=== PATIENT | female | born 1930 | race Caucasian/White ===

== ENCOUNTER 2016-10-12 09:34 | Inpatient (IN) | payer MEDICARE, BC, OTHER, MEDICAID ==
[~2016-10-12] VITALS: Ht 154.9 cm; Wt 44.0 kg
[2016-10-12] VITALS (15 sets, daily range): BP systolic 97–150; BP diastolic 49–112
[~2016-10-12 09:34] MED LIST: /PANT40TA OR; ACET-654 PO; ALPR0.25 OR; ARIC5TAB OR; BISA10SU4 PR; CALC12502 OR; COUM2.5T11 PO; DONETAB5 PO; DRIS50002 PO; ENOXAPARIN 40 MG/0.4 ML SYRINGE (J1650) SC SCH; FLEEENE4 PR; FLUD1TA PO; KAOP262S PO; KLOR1TAB69 PO; LEVA250T PO; LORA10TA2 PO; MILKSUS OR; MILKSUS PO; NORCOTAB PO; OYSCTAB PO; PAIN325T OR; PROT0.1O TOP; REFR0.5D8 OU; SPIR1CAP INH; TOPI0.252 EXT; TRAM50TA2 OR; VIT D 2000 PO; VITA100T5 OR; VITAMIN D50000 UNT OR; VITMTA PO; XANA0.25 OR; ZANT1TAB PO; [UNRECOGNIZED DRUG - CODE] OD
--- NOTE | 2016-10-12 10:14 | REP ---
Clinical: Shortness of breath. Comparison: 10/18/2015. Findings: Superimposed moderate to large right pleural effusion with right lower lobe atelectasis appreciated. Diffuse chronic interstitial changes noted with fibrosis and scarring. Mediastinum and cardiac silhouette stable. Skeletal structures demonstrate osteopenia and degenerative changes. Impression: [id number] right pleural effusion with right lower lobe atelectasis. Signed by Fuad Wing MD 10/12/2016 10:05 A
[2016-10-12 10:32] LABS: BASO % 0.2 % (0.0-1.0); EOS # 0.3 K/mm3 (0.0-0.50); EOS % 3.5 % (0.0-3.0); LARGE UNSTAINED CELL # 0.1 K/mm3 (0.0-0.4); LARGE UNSTAINED CELL % 1.1 % (0.0-4.0); LYMPH # 0.5 K/mm3 (1.5-4.5); LYMPH % 4.9 % (24.0-44.0); MEAN CORPUSCULAR HEMOGLOBIN 30.6 pg (27.0-33.0); MEAN CORPUSCULAR HGB CONC 31.3 g/dl (32.0-36.5); MEAN CORPUSCULAR VOLUME 97.8 fl (80.0-96.0); MONO # 0.4 K/mm3 (0.0-0.8); MONO % 4.3 % (0.0-5.0); NEUTROPHILS # 8.3 K/mm3 (1.8-7.7); PLATELET COUNT, AUTOMATED 306 k/mm3 (150-450); RED CELL DISTRIBUTION WIDTH 12.7 % (11.5-14.5); WHITE BLOOD COUNT 9.7 K/mm3 (4.0-10.0)
[2016-10-12 10:50] LABS: ANION GAP 6 MEQ/L (8-16); BLOOD UREA NITROGEN 31 MG/DL (7-18); CALCIUM LEVEL 9.7 MG/DL (8.8-10.2); CARBON DIOXIDE LEVEL 30 MEQ/L (21-32); CHLORIDE LEVEL 108 MEQ/L (98-107); CREATININE FOR GFR 1.12 MG/DL (0.55-1.02); GLOMERULAR FILTRATION RATE 48.9 (>32); GLUCOSE, FASTING 184 MG/DL (83-110); POTASSIUM SERUM 4.1 MEQ/L (3.5-5.1); SODIUM LEVEL 144 MEQ/L (136-145)
[2016-10-12] MEDS ORDERED: ISOVUE-370 76% 100ML VIAL (Q9967) As Ordered ONE (11:05)
--- NOTE | 2016-10-12 11:37 | REP ---
Clinical: Chest pain and shortness of breath with pleural effusion. Technique: Axial contrast enhanced images from the thoracic inlet to the upper abdomen using 100 ml Isovue 370 intravenous contrast material with coronal and sagittal re-formations. Findings: Satisfactory enhancement of the pulmonary vasculature is achieved and no filling defects are identified to suggest pulmonary embolus. Atherosclerotic changes to the thoracic aorta and coronary arteries noted without cardiomegaly and no evidence for thoracic aortic aneurysm or dissection. There is a large right pleural effusion with scattered passive atelectasis as well as ill-defined area of heterogeneous consolidation in the right lower lobe and underlying mass/neoplasm cannot be excluded. Underlying chronic interstitial changes and fibrosis/scarring noted throughout the aerated lung ventura. Skeletal structures demonstrate age-related degenerative changes. Limited evaluation of the upper abdomen suggests heterogeneous right adrenal lesion measuring approximately 13 mm. Impression: Large right pleural effusion with associated passive atelectasis. Heterogeneous area of consolidation in the atelectatic right lower lobe requires followup to exclude mass/neoplasm. Heterogeneous enhancing lesion in the right adrenal gland cannot be excluded. Signed by Fuad Wing MD 10/12/2016 11:29 A
[2016-10-12] MEDS ORDERED: MIRT30TA3 PO (11:48)
[2016-10-12] MEDS ORDERED: NAME10TA PO (11:48)
[2016-10-12] MEDS ORDERED: TYLE325T5 PO (11:48)
[2016-10-12] MEDS ORDERED: LORA-376 PO ×2 (11:48)
[2016-10-12] MEDS ORDERED: KLOR1CAP2 PO (11:48)
[2016-10-12] MEDS ORDERED: FEVE650S3 PR (11:48)
[2016-10-12] MEDS ORDERED: ALBU83IN INH (11:48)
[2016-10-12] MEDS ORDERED: ARTI99.0 OU (11:48)
[2016-10-12] MEDS ORDERED: SENO8.6T2 PO (11:48)
[2016-10-12] MEDS ORDERED: ZIOPTAN OD (11:48)
[2016-10-12] MEDS ORDERED: TRAN1.5D2 TOP (11:48)
[2016-10-12] MEDS ORDERED: ONDANSETRON 4MG/2ML VIAL (J2405) IV PRN (12:15)
[2016-10-12] MEDS ORDERED: ACETAMINOPHEN TAB 650MG DOSE (2X325MG) PO PRN (12:15)
--- NOTE | 2016-10-12 13:36 | EDDOCDS ---
Nurse's Notes [facility] Name: Krys Lopez Age: 86 yrs Sex: Female : 1930 Arrival Date: 10/12/2016 Time: 09:34 Bed 4 Private MD: Tania Griffin E Diagnosis: Pleural effusion in conditions classified elsewhere Presentation: 10/12 09:43 Presenting complaint: Sent here from [facility] increased SOB. Adult Sepsis Screening: The mlb1 patient does not have new or worsening altered mentation. Patient's respiratory rate is less than 22. Systolic blood pressure is greater than 100. Patient has a qSOFA score of 0- Negative Sepsis Screen. Suicide/Homicide risk assessment- the patient denies having any suicidal and/or homicidal ideations and does not present with any other emotional, behavioral or mental health complaints. Status: Patient is not a resident services director or dependent. Transition of care: patient was received from [facility]. 09:43 Acuity: BLAYNE Level 3 mlb1 09:43 Method Of Arrival: Walkin/Carried/Asstd mlb1 Triage Assessment: 09:44 General: Appears in no apparent distress, comfortable, Behavior is appropriate for age, mlb1 cooperative. Pain: Denies pain. The patient is triaged at the bedside. See Assessment in Nurses Notes section of ED record. Neurological: Level of Consciousness is awake, alert, Oriented to person, place, time. Respiratory: Onset: The symptoms/episode began/occurred gradually, Airway is patent Respiratory effort is even, unlabored. Historical: - Allergies: PENICILLINS; - Home Meds: 1. albuterol sulfate 2.5 mg/0.5 mL Nebulizer nebu 4 times per day 2. Oyster Shell Calcium 500 500 mg Oral tab daily 3. potassium chloride 10 mEq Oral cpER 2 caps once daily 4. Zioptan (PF) 0.0015 % ophthalmic dpet 1 drop once daily 5. Tylenol 325 mg Oral tab 2 tabs every 6 hours 6. Zantac 150 mg Oral tab 1 tab once daily 7. Senokot 8.6 mg Oral tab 1 tabs twice a day 8. multivitamin Oral tab 1 tablet daily 9. Claritin 10 mg oral tab 1 tab once daily 10. fludrocortisone 0.1 mg oral tab 1 tab once daily 11. Vitamin D2 50,000 unit oral cap every two weeks 12. mirtazapine 30 mg Oral tab 1 tab once daily 13. Namenda 10 mg oral tab 1 tab daily 14. Milk of Magnesia Oral 10 mL as needed 15. Refresh Tears 0.5 % ophthalmic drop 16. Ativan 0.25mg Oral tab once daily 17. Protopic 0.1 % topical oint as needed 18. Transderm-Scop 1.5 mg (1 mg over 3 days) TD pt3d 1 patch - PMHx: CVA; Hypertension; Seizure Disorder; COPD; GERD; - PSHx: Tonsillectomy; - Social history: Smoking status: Patient states was never smoker of tobacco. No barriers to communication noted, The patient speaks fluent Chinese, Speaks appropriately for age. - Family history: No immediate family members are acutely ill. - : The pt / caregiver states he / she is not on anticoagulants. Home medication list is obtained from the facility NOV. - Exposure Risk Screening:: None identified. Screenin:57 Advance Directives: There is an active DNR order and the pt has a copy here at this mlb1 time. 11:28 Screening information is obtained from the patient, prior medical records. Fall risk: hs1 At risk due to age, apparent cognitive impairment, gait disturbance, The following interventions are performed due to a positive Fall Risk Screen: Fall Risk is added to Special Handling on the patient Summary Screen. A Fall Risk Bracelet was applied to the patient. Side Rails are placed in the up position. A Call [facility] is given with instruction to call for help when getting out of bed. Fall Alert bracelet is placed on the patient. Assistance ADL's: Requires assistance with meal preparation, this assistance is provided by residence staff, bathing, assistance is provided by residence staff, toileting, assistance is provided by residence staff, ambulation, assistance is provided by residence staff, housework, assistance is provided by residence staff, medication administration, assistance is provided by residence staff. Abuse/DV Screen: The patient / caregiver reports he/she is: not in a situation that causes fear, pain or injury. Nutritional screening: No deficits noted. home support is adequate. Assessment: 10:05 General: Appears in no apparent distress, slender, Behavior is cooperative. Pain: hs1 Denies pain. Neurological: Level of Consciousness is confused, obeys commands. Cardiovascular: Rhythm is regular. Cardiovascular: Capillary refill is sluggish fingers are cold. . Edema is absent. Cardiovascular: Chest pain is denied. Respiratory: Airway is patent Respiratory effort is even, unlabored, Pleural rub noted bilaterally. Derm: Skin is pink, warm & dry. normal. 10:53 General: Appears to have moments of confusion, yelling for help usually after waking hs1 up. Patient comforted and resting at present. Given warm blankets. . 11:26 General: Appears in no apparent distress, Pt returned from CT scan with no complaints. hs1 Patient asked for cold water and MD aware or request. Patient does not appear SOB. . 12:48 Adult Sepsis Screening: The patient does not have new or worsening altered mentation. hs1 Patient's respiratory rate is less than 22. Systolic blood pressure is greater than 100. Patient has a qSOFA score of 0- Negative Sepsis Screen. General: Appears in no apparent distress, Behavior is appropriate for age, cooperative. Pain: Denies pain. Cardiovascular: Capillary refill < 3 seconds Edema is absent. Rhythm is regular. Vital Signs: 09:36 BP 92 / 54; Pulse 72; Resp 18; Temp 96.6; Pulse Ox 92% on 2 lpm NC; Weight 44 kg; elp Height 61 in. (154.94 cm); 09:44 BP 116 / 61 (auto/); hs1 09:45 Pulse 74 MON; Pulse Ox 91% ; hs1 11:28 BP 115 / 55 (auto/); hs1 11:28 Pulse 70 MON; Pulse Ox 91% ; hs1 11:43 BP 110 / 57 (auto/); hs1 11:43 Pulse 74 MON; Pulse Ox 94% ; hs1 12:13 BP 131 / 60 (auto/); hs1 12:13 Pulse 74 MON; Pulse Ox 91% ; hs1 12:28 BP 123 / 62 (auto/); hs1 12:28 Pulse 70 MON; Pulse Ox 92% ; hs1 12:43 BP 128 / 60 (auto/); hs1 12:43 Pulse 68 MON; Pulse Ox 94% ; hs1 12:58 BP 130 / 68 (auto/); hs1 12:58 Pulse 64 MON; Pulse Ox 94% ; hs1 13:31 BP 132 / 58; Pulse 68; Resp 18; Temp 98.4; Pulse Ox 94% 2 lpm ; hs1 09:36 Body Mass Index 18.33 (44.00 kg, 154.94 cm) elp Vitals: 09:36 Log In Time: October 12, 2016 at 09:34. RN notified that patient meets Red Flag elp criteria. ED Course: 09:35 Patient visited by Priscilla Leone PCA. elp 09:35 Patient moved to Waiting elp 09:36 Tania Griffin is Private Physician. elp 09:36 Patient visited by Priscilla Leone PCA. elp 09:37 More Shay, RN is Primary Nurse. elp 09:37 Patient moved to Pre RCE elp 09:37 Patient moved to 4 elp 09:41 Christa Whalen MD is Attending Physician. sd1 09:41 Patient visited by Christa Whalen MD. sd1 09:42 Patient visited by Barron Davis RN. mlb1 09:44 Triage Initiated mlb1 10:00 Pt greeted and oriented to ED. Patient advised of names of staff involved in care, jrd location of call solis, wait times and NPO status. Patient has correct armband on for positive identification. Placed in gown. Bed in low position. Call light in reach. Side rails up X2. monitor technician on. Pulse ox on. NIBP on. 10:00 EKG done. (by ED staff). Reviewed by Christa Whalen MD. jrd 10:01 Patient visited by Geovanny Sharma PCA. jrd 10:05 Inserted saline lock: 20 gauge in left antecubital area and blood collected. The hs1 patient tolerated the procedure well. 10:23 -Blood Culture Sent. hs1 10:23 B-Type Natiuretic Peptide Sent. hs1 10:23 Basic Metabolic Profile Sent. hs1 10:23 CBC with Diff Sent. hs1 10:23 Cardiac Injury Profile Sent. hs1 10:23 Troponin Sent. hs1 10:23 Lactic Acid (Ford tube on ice) Sent. hs1 10:27 [facility] Payment Agreement was scanned into [employer] and attached to record. jp5 10:48 Chest, 1 View Returned. EDMS 10:51 Patient visited by More Shay RN. hs1 11:26 Patient visited by More Shay RN. hs1 11:28 The patient / caregiver is instructed regarding the plan of care and ED course. hs1 11:30 PT/INR Sent. hs1 11:48 Lam Estrada is Hospitalizing Provider. sd1 12:12 CT Chest With Contrast Returned. EDMS 12:44 T-Sheet-- Draft Copy was scanned into [employer] and attached to record. seh 13:30 No procedures done that require assistance. hs1 Order Results: Lab Order: B-Type Natiuretic Peptide; SPEC'M 10/12/16 10:04 Test: BRAIN NATRIURETIC PEPTIDE; Value: 261; Range: <100; Abnormal: Above high normal; Units: PG/ML; Status: F Lab Order: Basic Metabolic Profile; SPEC'M 10/12/16 10:04 Test: GLUCOSE, FASTING; Value: 184; Range: 83-110; Abnormal: Above high normal; Units: MG/DL; Status: F Test: BLOOD UREA NITROGEN; Value: 31; Range: 7-18; Abnormal: Above high normal; Units: MG/DL; Status: F Test: CREATININE FOR GFR; Value: 1.12; Range: 0.55-1.02; Abnormal: Above high normal; Units: MG/DL; Status: F Test: GLOMERULAR FILTRATION RATE; Value: 48.9; Range: >32; Status: F Test: SODIUM LEVEL; Value: 144; Range: 136-145; Units: MEQ/L; Status: F Test: POTASSIUM SERUM; Value: 4.1; Range: 3.5-5.1; Units: MEQ/L; Status: F Test: CHLORIDE LEVEL; Value: 108; Range: 98-107; Abnormal: Above high normal; Units: MEQ/L; Status: F Test: CARBON DIOXIDE LEVEL; Value: 30; Range: 21-32; Units: MEQ/L; Status: F Test: ANION GAP; Value: 6; Range: 8-16; Abnormal: Below low normal; Units: MEQ/L; Status: F Test: CALCIUM LEVEL; Value: 9.7; Range: 8.8-10.2; Units: MG/DL; Status: F Test Note: ; Units are mL/min/1.73 m2 Chronic Kidney Disease Staging per NKF: Stage I & II GFR >=60 Normal to Mildly Decreased Stage III GFR 30-59 Moderately Decreased Stage IV GFR 15-29 Severely Decreased Stage V GFR <15 Very Little GFR Left ESRD GFR <15 on WAFER FABRICATOR Lab Order: CBC with Diff; SPEC'M 10/12/16 10:04 Test: WHITE BLOOD COUNT; Value: 9.7; Range: 4.0-10.0; Units: K/mm3; Status: F Test: RED BLOOD COUNT; Value: 4.08; Range: 4.00-5.40; Units: M/mm3; Status: F Test: HEMOGLOBIN; Value: 12.5; Range: 12.0-16.0; Units: g/dl; Status: F Test: HEMATOCRIT; Value: 39.9; Range: 36.0-47.0; Units: %; Status: F Test: MEAN CORPUSCULAR VOLUME; Value: 97.8; Range: 80.0-96.0; Abnormal: Above high normal; Units: fl; Status: F Test: MEAN CORPUSCULAR HEMOGLOBIN; Value: 30.6; Range: 27.0-33.0; Units: pg; Status: F Test: MEAN CORPUSCULAR HGB CONC; Value: 31.3; Range: 32.0-36.5; Abnormal: Below low normal; Units: g/dl; Status: F Test: RED CELL DISTRIBUTION WIDTH; Value: 12.7; Range: 11.5-14.5; Units: %; Status: F Test: PLATELET COUNT, AUTOMATED; Value: 306; Range: 150-450; Units: k/mm3; Status: F Test: NEUTROPHILS %; Value: 86.0; Range: 36.0-66.0; Abnormal: Above high normal; Units: %; Status: F Test: LYMPH %; Value: 4.9; Range: 24.0-44.0; Abnormal: Below low normal; Units: %; Status: F Test: MONO %; Value: 4.3; Range: 0.0-5.0; Units: %; Status: F Test: EOS %; Value: 3.5; Range: 0.0-3.0; Abnormal: Above high normal; Units: %; Status: F Test: BASO %; Value: 0.2; Range: 0.0-1.0; Units: %; Status: F Test: LARGE UNSTAINED CELL %; Value: 1.1; Range: 0.0-4.0; Units: %; Status: F Test: NEUTROPHILS #; Value: 8.3; Range: 1.8-7.7; Abnormal: Above high normal; Units: K/mm3; Status: F Test: LYMPH #; Value: 0.5; Range: 1.5-4.5; Abnormal: Below low normal; Units: K/mm3; Status: F Test: MONO #; Value: 0.4; Range: 0.0-0.8; Units: K/mm3; Status: F Test: EOS #; Value: 0.3; Range: 0.0-0.50; Units: K/mm3; Status: F Test: BASO #; Value: 0.0; Range: 0.0-0.2; Units: K/mm3; Status: F Test: LARGE UNSTAINED CELL #; Value: 0.1; Range: 0.0-0.4; Units: K/mm3; Status: F Lab Order: Cardiac Injury Profile; SPEC'M 10/12/16 10:04 Test: CPK CREATINE PHOSPHOKINASE; Value: 50; Range: 26-192; Units: U/L; Status: F Test: CK-MB VALUE MASS; Value: 1.0; Range: 0.0-3.6; Units: NG/ML; Status: F Test: MB/CK RELATIVE INDEX; Value: 2.00; Range: < OR =4; Status: F Test Note: ; DIAGNOSIS CRITERIA MMB ng/ml Relative Index (RI) NON-AMI < or = 5 N/A FORD ZONE > 5 < or = 4 AMI > 5 > 4 Lab Order: Troponin; SPEC'M 10/12/16 10:04 Test: TROPONIN I; Value: < 0.02; Range: < 0.10; Units: NG/ML; Status: F Test Note: ; Troponin I Reference Interval for [employer] LOCI: 99th Percentile= 0.00-0.045 ng/ml Risk Stratification: <= 0.10 ng/ml Decreased Risk for Adverse Clinical Events. 0.10-1.50 ng/ml Increased Risk for Adverse Clinical Events. Evaluation of additional criterion and/or repeat testing in 2-6 hours is suggested to rule out myocardial damage. >= 1.50 ng/ml Indicative of Myocardial Injury. Lab Order: Lactic Acid (Ford tube on ice); SPEC'M 10/12/16 10:05 Test: LACTIC ACID LEVEL, LACTATE; Value: 2.1; Range: 0.4-2.0; Abnormal: Above high normal; Units: MMOL/L; Status: F Lab Order: PT/INR; SPEC'M 10/12/16 10:06 Test: PROTHROMBIN TIME; Value: 13.3; Range: 12.3-14.5; Units: SECONDS; Status: F Test: INR; Value: 1.00; Status: F Test Note: ; THERAPUTIC HUMAN INR VALUES INDICATIONS NORMAL RANGES PROPHYLAXIS/TREATMENT OF: VENOUS THROMBOSIS 2.0-3.0 PULMONARY EMBOLISM 2.0-3.0 PREVENTION OF SYSTEMIC EMBOLISM FROM: TISSUE HEART VALVES 2.0-3.0 ACUTE MYOCARDIAL INFARCTION 2.0-3.0 VALVULAR HEART DISEASE 2.0-3.0 ATRIAL FIBRILLATION 2.0-3.0 MECHANICAL VALVES(HIGH RISK) 2.5-3.5 RECURRENT MYOCARDIAL INFARCTION 2.5-3.5 Radiology Order: Chest, 1 View Test: Chest, 1 View REASON FOR EXAMINATION: Shortness of Breath; Clinical: Shortness of breath.; ; Comparison: 10/18/2015.; ; Findings:; Superimposed moderate to large right pleural effusion with right lower lobe; atelectasis appreciated.; ; Diffuse chronic interstitial changes noted with fibrosis and scarring.; Mediastinum and cardiac silhouette stable. Skeletal structures demonstrate; osteopenia and degenerative changes.; ; Impression:; [id number] right pleural effusion with right lower lobe atelectasis.; ; ; Signed by; Fuad Wing MD 10/12/2016 10:05 A; Radiology Order: CT Chest With Contrast Test: CT Chest With Contrast REASON FOR EXAMINATION: pleural effusion; Clinical: Chest pain and shortness of breath with pleural effusion.; ; Technique: Axial contrast enhanced images from the thoracic inlet to the upper; abdomen using 100 ml Isovue 370 intravenous contrast material with coronal and; sagittal re-formations.; ; Findings:; Satisfactory enhancement of the pulmonary vasculature is achieved and no filling; defects are identified to suggest pulmonary embolus. Atherosclerotic changes to; the thoracic aorta and coronary arteries noted without cardiomegaly and no; evidence for thoracic aortic aneurysm or dissection.; ; There is a large right pleural effusion with scattered passive atelectasis as; well as ill-defined area of heterogeneous consolidation in the right lower lobe; and underlying mass/neoplasm cannot be excluded. Underlying chronic interstitial; changes and fibrosis/scarring noted throughout the aerated lung ventura. Skeletal; structures demonstrate age-related degenerative changes. Limited evaluation of; the upper abdomen suggests heterogeneous right adrenal lesion measuring; approximately 13 mm.; ; Impression:; Large right pleural effusion with associated passive atelectasis.; Heterogeneous area of consolidation in the atelectatic right lower lobe requires; followup to exclude mass/neoplasm.; Heterogeneous enhancing lesion in the right adrenal gland cannot be excluded.; ; ; Signed by; Fuad Wing MD 10/12/2016 11:29 A; Outcome: 11:49 Decision to Hospitalize by Provider. sd1 13:30 Discharge Assessment: Patient awake, alert and oriented x 3. No cognitive and/or hs1 functional deficits noted. Patient verbalized understanding of disposition instructions. patient administered narcotics - no. The following High Risk Discharge criteria are identified: None. Admitted to PCU accompanied by nurse, accompanied by tech, via wheelchair, with oxygen, on monitor. Condition: stable. CT Study completed. Admission hand-off: Report called to [facility] PCU. Property :Personal belongings accompany Pt. 13:35 Patient left the ED. hs1 Signatures: Dispatcher [employer] Christa Capone MD MD sd1 Barron Davis RN RN mlb1 More Shay RN RN hs1 Priscilla Leone, GEOSPATIAL ENGINEER GEOSPATIAL ENGINEER Geovanny Hanley, GEOSPATIAL ENGINEER GEOSPATIAL ENGINEER Flavio Shepherd 5 Christa Monsivais se [facility]
--- NOTE | 2016-10-12 13:36 | EDDOCDS ---
Physician Documentation [facility] Name: Krys Lopez Age: 86 yrs Sex: Female : 1930 Arrival Date: 10/12/2016 Time: 09:34 Bed 4 Private MD: Tania Griffin E Disposition: 10/12/16 11:49 Hospitalization ordered by Lam Estrada for Inpatient Admission. Preliminary diagnosis is Pleural effusion in conditions classified elsewhere. - Bed requested for PCU. - Status is Inpatient Admission. hs1 - Condition is Stable. - Problem is new. - Symptoms are unchanged. Historical: - Allergies: PENICILLINS; - Home Meds: 1. albuterol sulfate 2.5 mg/0.5 mL Nebulizer nebu 4 times per day 2. Oyster Shell Calcium 500 500 mg Oral tab daily 3. potassium chloride 10 mEq Oral cpER 2 caps once daily 4. Zioptan (PF) 0.0015 % ophthalmic dpet 1 drop once daily 5. Tylenol 325 mg Oral tab 2 tabs every 6 hours 6. Zantac 150 mg Oral tab 1 tab once daily 7. Senokot 8.6 mg Oral tab 1 tabs twice a day 8. multivitamin Oral tab 1 tablet daily 9. Claritin 10 mg oral tab 1 tab once daily 10. fludrocortisone 0.1 mg oral tab 1 tab once daily 11. Vitamin D2 50,000 unit oral cap every two weeks 12. mirtazapine 30 mg Oral tab 1 tab once daily 13. Namenda 10 mg oral tab 1 tab daily 14. Milk of Magnesia Oral 10 mL as needed 15. Refresh Tears 0.5 % ophthalmic drop 16. Ativan 0.25mg Oral tab once daily 17. Protopic 0.1 % topical oint as needed 18. Transderm-Scop 1.5 mg (1 mg over 3 days) TD pt3d 1 patch - PMHx: CVA; Hypertension; Seizure Disorder; COPD; GERD; - PSHx: Tonsillectomy; - Social history: Smoking status: Patient states was never smoker of tobacco. No barriers to communication noted, The patient speaks fluent Azeri, Speaks appropriately for age. - Family history: No immediate family members are acutely ill. - : The pt / caregiver states he / she is not on anticoagulants. Home medication list is obtained from the facility NOV. - Exposure Risk Screening:: None identified. Vital Signs: 10/12 09:36 BP 92 / 54; Pulse 72; Resp 18; Temp 96.6; Pulse Ox 92% on 2 lpm NC; Weight 44 kg / 97 elp lbs; Height 61 in. (154.94 cm); 09:44 BP 116 / 61 (auto/); hs1 09:45 Pulse 74 MON; Pulse Ox 91% ; hs1 11:28 BP 115 / 55 (auto/); hs1 11:28 Pulse 70 MON; Pulse Ox 91% ; hs1 11:43 BP 110 / 57 (auto/); hs1 11:43 Pulse 74 MON; Pulse Ox 94% ; hs1 12:13 BP 131 / 60 (auto/); hs1 12:13 Pulse 74 MON; Pulse Ox 91% ; hs1 12:28 BP 123 / 62 (auto/); hs1 12:28 Pulse 70 MON; Pulse Ox 92% ; hs1 12:43 BP 128 / 60 (auto/); hs1 12:43 Pulse 68 MON; Pulse Ox 94% ; hs1 12:58 BP 130 / 68 (auto/); hs1 12:58 Pulse 64 MON; Pulse Ox 94% ; hs1 13:31 BP 132 / 58; Pulse 68; Resp 18; Temp 98.4; Pulse Ox 94% 2 lpm ; hs1 09:36 Body Mass Index 18.33 (44.00 kg, 154.94 cm) elp MDM: 09:39 -Blood Culture (Adults Only), peripheral from different site, or from device/port/PICC sd1 etc. if present ordered. 09:39 Wafer Mounter/Pulse Ox/q 15 min VS ordered. sd1 09:39 IV Saline Lock ordered. sd1 09:40 Oxygen at 4L/Min NC or Home dosage ordered. sd1 09:40 Rhythm Strip to chart ordered. sd1 09:41 B-Type Natiuretic Peptide Ordered. EDMS 09:41 Basic Metabolic Profile Ordered. EDMS 09:41 CBC with Diff Ordered. EDMS 09:41 Cardiac Injury Profile Ordered. EDMS 09:41 Troponin Ordered. EDMS 09:41 -Blood Culture Ordered. EDMS 09:41 Chest, 1 View Ordered. EDMS 09:41 ECG WITH READING ER PHYS+CARDIAG ordered. EDMS 09:41 Lactic Acid (Ford tube on ice) Ordered. EDMS 09:44 Orthostatic VS ordered. sd1 09:58 -Blood Culture (Adults Only), peripheral from different site, or from device/port/PICC deg etc. if present complete. 09:59 BLOOD CULTURES Ordered. EDMS 10:27 [facility] Payment Agreement was scanned into [employer] and attached to record. jp5 10:27 Financial registration complete. jp5 10:31 BED REQUEST+ADM ordered. EDMS 10:53 Basic Metabolic Profile Reviewed. sd1 10:53 CBC with Diff Reviewed. sd1 10:53 Cardiac Injury Profile Reviewed. sd1 10:53 Troponin Reviewed. sd1 10:53 Chest, 1 View Reviewed. sd1 10:53 PT/INR Ordered. EDMS 10:56 CT Chest With Contrast Ordered. EDMS 11:25 B-Type Natiuretic Peptide Reviewed. sd1 11:25 Basic Metabolic Profile Reviewed. sd1 11:25 Lactic Acid (Ford tube on ice) Reviewed. sd1 11:25 Cardiac Injury Profile Reviewed. sd1 11:25 Troponin Reviewed. sd1 12:19 Admission / Observation Status ordered. EDMS 12:19 NPO DIET ordered. EDMS 12:21 PHYSICAL THERAPY EVAL & TREAT ordered. EDMS 12:44 T-Sheet-- Draft Copy was scanned into [employer] and attached to record. [facility] Signatures: Dispatcher [employer] EDRI Christa Whalen MD MD sd1 Arlene Quezada, Poultry Pathologist Unit deg Barron Davis RN RN mlb1 More Shay RN RN hs1 Cindy Robles RN Flavio Sanchez 5 Christa Monsivais [facility] The chart was reviewed and I authenticate all verbal orders and agree with the evaluation and treatment provided.Corrections: (The following items were deleted from the chart) 12:57 12:19 PROTHROMBIN TIME PROFILE\E\INR ordered. EDMS EDMS 12:57 12:20 PARTIAL THROMBOPLASTIN TIME ordered. EDRI EDMS Attachments: 10:27 [facility] Payment Agreement jp5 12:44 T-Sheet-- Draft Copy [facility] MTDD
[2016-10-12] MEDS ORDERED: POLYVINYL ALCOHOL OPHTH SOLN 15 ML(LIQUITEARS) OU PRN (13:45)
[2016-10-12] MEDS ORDERED: MOM 30ML SUSPENSION UDC PO PRN (13:45)
[2016-10-12] MEDS ORDERED: LORazepam 0.5 MG TAB PO PRN (13:45)
[2016-10-12] MEDS ORDERED: BISACODYL 10 MG SUPP PR PRN (13:45)
[2016-10-12] MEDS: PANTOPRAZOLE 40MG INJ (PROTONIX) (C9113) IV SCH (13:57)
--- NOTE | 2016-10-12 13:58 | HPEPDOC ---
Medical History and Physical Date of Admission Oct 12, 2016 at 12:10 History and Physical PRIMARY CARE PROVIDER: Dr. Griffin ATTENDING: Timur Broderick MD CHIEF COMPLAINT: SOB HISTORY OF PRESENT ILLNESS: This 86-year-old female past medical history of subarachnoid hemorrhage, subdural hemorrhage, SIADH, osteoporosis, GI bleed, chronic anemia oh presents with hypoxia from the custodial. Patient was apparently coughing and short of breath over the last 2 days. She was found to be hypoxic requiring oxygen supplementation, for which she was sent to the ED. Patient has baseline moderate to severe dementia and history is very limited. Upon presentation to the ED patient was found to have a large right-sided pleural effusion with likely underlying mass. The patient is hemodynamically stable and saturating well on [address] Patel was consulted in the ER and will be evaluating the patient for possible thoracentesis. We'll need to speak with the niece who is the POA (caring) at [phone]. PAST SURGICAL HISTORY: Left intertrochanteric fracture with ORIF of left hip SOCIAL HISTORY: H/o tobacco and alcohol abuse. FAMILY HISTORY: Noncontributory ALLERGIES: Please see below. REVIEW OF SYSTEMS: HEENT: Denies sore throat/headache CARDIOVASCULAR: Denies chest pain/palpitations RESPIRATORY: + shortness of breath/cough GASTROINTESTINAL: denies nausea/vomiting GENITOURINARY: Denies dysuria/urinary urgency. MUSCULOSKELETAL: Denies myalgias/arthralgias NEUROLOGICAL: Denies any focal weakness Rest of ROS negative. HOME MEDICATIONS: Please see below. PHYSICAL EXAMINATION: Vitals: (see below) General: No acute distress, laying comfortably in bed. HEENT: Moist mucous membranes. Neck: No JVD or lymphadenopathy Cardiac: RRR, No murmurs Pulm: Diminshed breath sounds and coarse crackles R>L b/l. No wheezing, no rhonchi Abd: NT/ND + BS Ext: No edema or cyanosis LABORATORY DATA: See below. IMAGING: CT chest with contrast 10/12/16 Findings: Satisfactory enhancement of the pulmonary vasculature is achieved and no filling defects are identified to suggest pulmonary embolus. Atherosclerotic changes to the thoracic aorta and coronary arteries noted without cardiomegaly and no evidence for thoracic aortic aneurysm or dissection. There is a large right pleural effusion with scattered passive atelectasis as well as ill-defined area of heterogeneous consolidation in the right lower lobe and underlying mass/neoplasm cannot be excluded. Underlying chronic interstitial changes and fibrosis/scarring noted throughout the aerated lung ventura. Skeletal structures demonstrate age-related degenerative changes. Limited evaluation of the upper abdomen suggests heterogeneous right adrenal lesion measuring approximately 13 mm. Impression: Large right pleural effusion with associated passive atelectasis. Heterogeneous area of consolidation in the atelectatic right lower lobe requires followup to exclude mass/neoplasm. Heterogeneous enhancing lesion in the right adrenal gland cannot be excluded. CXR 10/12/16 Impression: [id number] right pleural effusion with right lower lobe atelectasis. ASSESSMENT/PLAN: Hypoxia secondary to large pleural effusion with likely underlying mass. There are areas of consolidation and given the patient's symptoms of cough as well as from a custodial setting will start patient on vancomycin and Levaquin while cultures are pending. Patient is saturating well into business cannula. Dr. Patel has been consulted for possible thoracentesis. We'll trend WBCs and CRP. De-escalate antibiotics based on cultures. 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 No acute bleeding. We'll continue to monitor hemoglobin. DVT prophylaxis- we will need to be addressed after possible thoracentesis. Vital Signs BP 116/61, HR 74, RR 16 O2 sat 94% 2L NC. Laboratory Data Labs 24H Laboratory Tests 2 10/12/16 10:04: Anion Gap 6L, B-Type Natriuretic Peptide 261H, White Blood Count 9.7, Red Blood Count 4.08, Hemoglobin 12.5, Hematocrit 39.9, Mean Corpuscular Volume 97.8H, Mean Corpuscular Hemoglobin 30.6, Mean Corpuscular Hemoglobin Concent 31.3L, Red Cell Distribution Width 12.7, Platelet Count 306, Neutrophils (%) (Auto) 86.0H, Lymphocytes (%) (Auto) 4.9L, Monocytes (%) (Auto) 4.3, Eosinophils (%) ( Auto) 3.5H, Basophils (%) (Auto) 0.2, Neutrophils # (Auto) 8.3H, Lymphocytes # ( Auto) 0.5L, Monocytes # (Auto) 0.4, Eosinophils # (Auto) 0.3, Basophils # (Auto ) 0.0, Blood Urea Nitrogen 31H, Creatinine 1.12H, Sodium Level 144, Potassium Level 4.1, Chloride Level 108H, Carbon Dioxide Level 30, Calcium Level 9.7, Total Creatine Kinase 50, Creatine Kinase MB 1.0, Creatine Kinase MB Relative Index 2.00, Glomerular Filtration Rate 48.9, Large Unclassified Cells # 0.1, Large Unclassified Cells % 1.1, Troponin I < 0.02 10/12/16 10:05: Lactic Acid Level 2.1H 10/12/16 10:06: Prothromb Time International Ratio 1.00, Prothrombin Time 13.3 CBC/BMP Laboratory Tests 10/12/16 10:04 Calcium Level 9.7, Total Creatine Kinase 50, Red Blood Count 4.08, Mean Corpuscular Volume 97.8 H, Mean Corpuscular Hemoglobin 30.6, Mean Corpuscular Hemoglobin Concent 31.3 L, Red Cell Distribution Width 12.7, Neutrophils (%) ( Auto) 86.0 H, Lymphocytes (%) (Auto) 4.9 L, Monocytes (%) (Auto) 4.3, Eosinophils (%) (Auto) 3.5 H, Basophils (%) (Auto) 0.2, Neutrophils # (Auto) 8.3 H, Lymphocytes # (Auto) 0.5 L, Monocytes # (Auto) 0.4, Eosinophils # (Auto) 0.3, Basophils # (Auto) 0.0 Microbiology Microbiology 10/12/16 Blood Culture, Received Pending 10/12/16 Blood Culture, Received Pending Home Medications Scheduled (Oysco 500) 500 Mg Tab 500 MG PO BID (Klor-Con Sprinkle) 10 Meq Cap 20 MEQ PO DAILY ([Zioptan]) 1 DROP OD QPM Acetaminophen (Acetaminophen) 325 Mg Tab 650 MG PO QID Albuterol Sulfate (Albuterol Sulfate) 2.5 Mg/3 Ml Nebu 2.5 MG INH QID Carboxymethylcellulose Sodium (Refresh Tears) 0.5 % Alan 2 DROP OU TID Fludrocortisone Acetate (Fludrocortisone Acetate) 0.1 Mg Tab 0.1 MG PO DAILY Loratadine (Loratadine) 10 Mg Tab 10 MG PO DAILY Lorazepam (Lorazepam) 0.5 Mg Tab 0.25 MG PO DAILY Memantine Hydrochloride (Namenda) 10 Mg Tab 10 MG PO DAILY Mirtazapine (Mirtazapine) 30 Mg Tab 30 MG PO QPM Multivitamins *[facility] STOCKED* (Thera M Plus *[facility] STOCKED*) 1 Tab Tab 1 TAB PO DAILY Ranitidine HCl (Zantac) 150 Mg Tab 150 MG PO QPM Scopolamine (Transderm-Scop) 1.5 Mg Dis 1.5 MG TOP Q72H Senna (Senokot) 8.6 Mg Tab 1 TAB PO BID Tiotropium [place] Monohydrate (Spiriva Handihaler) 18 Mcg Cap 1 INHALATION INH DAILY Vitamin D (Drisdol) 50,000 Unit Cap 50,000 UNIT PO Q2WK Scheduled PRN Acetaminophen (Tylenol) 325 Mg Tab 650 MG PO Q4H PRN PRN PAIN / FEVER Acetaminophen (Feverall Adults) 650 Mg Sup 650 MG MI Q4H PRN PRN PAIN / FEVER Artificial Tears (Artificial Tears) 1.4 % Daniela 1 DROP OU Q4H PRN PRN DRY EYES Bisacodyl (Bisacodyl) 10 Mg Sup 10 MG MI DAILY PRN PRN CONSTIPATION Lorazepam (Lorazepam) 0.5 Mg Tab 0.5 MG PO Q4H PRN PRN ANXIETY Milk Of Magnesia (Milk of Magnesia) 1,200 Mg/15 Ml Tamica 10 ML PO DAILY PRN PRN CONSTIPATION Sodium Phosphate/Biphosphate (Fleet Enema 7-19 gm/118Ml) 1 Carmen Carmen 1 EA MI DAILY PRN PRN CONSTIPATION Tacrolimus (Protopic) 0.1 % Oin 1 DOSE TOP 3XW PRN PRN DERMATITIS/REDNESS APPLY TO AFFECTED EYELIDS MON, FRI, FRI Allergies Coded Allergies: Penicillins (Verified Allergy, Mild, COUGH - PER PT LONG TIME AGO, 12/28/12) Penicillins Cross Reactors (Verified Allergy, Mild, COUGH - PER PT LONG TIME AGO, 12/28/12) TIMUR BRODERICK MD Oct 12, 2016 13:58
[2016-10-12] MEDS: NS 1,000 ML IV SCH (14:08)
--- NOTE | 2016-10-12 14:16 | PHACANCOPD ---
PHARMACY VANCOMYCIN DOSING Pt Demographics Demographics Patient Age:86 , Weight: , Gender: female Adjusted Body Weight Date: 10/12/16, Adjusted Body Weight: Kg Events Past 24 Hours Events Past 24 Hours: YES: Pending Diagnostics Vancomycin Vancomycin indication: Pneumonia Vancomycin Target Ranges: 15-20 mcg/ml Vancomycin Load Y/N: Yes Load Dose Date Time Vancomycin Load Dose: 1g Date: 10/12/16 Time: 1600 Vancomycin Dose Date: 10/12/16. Current Vancomycin Dose: [500mg IV Q24H] Intermittent Dosing?: No Labs Labs Item Value Date Time White Blood Count 9.7 K/mm3 10/12/16 1004 Blood Urea Nitrogen 31 MG/DL H 10/12/16 1004 Creatinine 1.12 MG/DL H 10/12/16 1004 Lactic Acid Level 2.1 MMOL/L H 10/12/16 1005 Micro Microbiology 10/12/16 Blood Culture, Received Pending 10/12/16 Blood Culture, Received Pending Creatinine Clearance Date:10/12/16. Estimated Creatinine Clearance: [~30 ml/min]. Assessment and Plan Maintaining Current Dose?: Yes Reason for dose change: Other Pharmacist Note Pharmacist Note Date: 10/12/16. Pharmacist note: Day #1 vancomycin initiated with a 1g loading dose, followed by a maintenance regimen of 500 mg IV Q24H for the treatment of pneumonia - aiming for a goal trough of 15-20 mcg/ml. WBC currently WNL, and lactic acid is elevated. 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 We will continue to monitor the patient and schedule a trough accordingly. [facility] Oct 12, 2016 14:16
[2016-10-12] MEDS ORDERED: LevoFLOXacin 500 MG in APPROPRIATE DILUENT 1 EA IV ONE (15:00)
[2016-10-12] MEDS: ALBUTEROL SULFATE 2.5 MG/0.5 ML INH NEB SOLN INH SCH ×2 (15:01→19:27)
[2016-10-12] MEDS ORDERED: MIDAZOLAM INJ 2 MG/2 ML VIAL (J2250) As Ordered ONE (15:23)
[2016-10-12] MEDS ORDERED: LIDOCAINE 1% MDV 20ML VIAL As Ordered ONE (15:24)
[2016-10-12] MEDS ORDERED: FLUMAZENIL 0.5 MG/5 ML VIAL As Ordered ONE (15:24)
[2016-10-12] MEDS ORDERED: VANCOMYCIN HCL 1,000 MG, VIAL MATE ADAPTER 1 EACH in D5W 250 ML IV ONE (16:00)
--- NOTE | 2016-10-12 16:11 | REP ---
Clinical: Follow up pleural effusion. Comparison: 10/12/2016 at 09:54 a.m. Findings: Right chest tube in satisfactory position. Previous [id number] right pleural effusion is significantly improved with minimal right pleural effusion and acute opacity at the right lung base suggested. Underlying diffuse chronic changes noted bilaterally. Mediastinum and cardiac silhouette are within normal limits and stable. Skeletal structures demonstrate osteopenia and degenerative changes. Impression: Right chest tube with significantly improved near completely resolved right pleural effusion. Right basilar atelectasis. Signed by Fuad Wing MD 10/12/2016 04:02 P
[2016-10-12] MEDS ORDERED: MIDAZOLAM INJ 2 MG/2 ML VIAL (J2250) IV STA (16:12)
[2016-10-12] MEDS ORDERED: LIDOCAINE 1% MDV 20ML VIAL SC ONE (16:30)
[2016-10-12 16:50] LABS: LDH, BODY FLUID 204 U/L (NOT ESTABLISHED); TOTAL PROTEIN, BODY FLUID 5.5 G/DL (NOT ESTABLISHED)
[2016-10-12 16:59] LABS: RBC PLEURAL FLUID < 10 (<10mm3 cells/uL); TNC PLEURAL FLUID 440 cells/uL (0-20)
[2016-10-12 17:03] LABS: BF DIFF IF INDICATED? YES (NO)
[2016-10-12 17:38] LABS: CC BF DIFF EXAM CYTOCENTRIFUGE
[2016-10-12] MEDS: FAMOTIDINE 20 MG TAB PO SCH (21:35)
[2016-10-12] MEDS: MIRTAZAPINE 15 MG TAB PO SCH (21:35)
[2016-10-12] MEDS: SENOKOT S TAB PO SCH (21:35)
[2016-10-12] MEDS: PERCOCET 5MG/325MG TAB PO PRN (21:36)
[2016-10-12] MEDS: OYSTER SHELL CALCIUM 500 MG TAB PO SCH (21:36)
[2016-10-13] MEDS: NS 1,000 ML IV SCH (03:44)
[2016-10-13] MEDS: PERCOCET 5MG/325MG TAB PO PRN ×2 (03:44→08:38)
[2016-10-13 04:00] VITALS: BP 121/59
[2016-10-13 07:00] VITALS: BP 96/46
[2016-10-13] MEDS: TIOTROPIUM INHALER/CAPSULE (SPIRIVA) INH SCH (07:06)
[2016-10-13] MEDS: ALBUTEROL SULFATE 2.5 MG/0.5 ML INH NEB SOLN INH SCH ×4 (07:06→20:49)
--- NOTE | 2016-10-13 07:23 | ECGEPIP ---
Stationary ECG Study [facility] - ED Test Date: 2016-10-12 Pat Name: KI ANDERSON Department: Room: [place] [address] Gender: F Materials Engineer: shayy : [id number] Requested By: Christa Whalen Order Number: [id number] Reading MD: Christa Whalen Measurements Intervals [place] Rate: 75 P: 33 [place]: 161 QRS: -29 QRSD: 91 T: 60 QT: 395 QTc: 442 Interpretive Statements SINUS RHYTHM LEFT VENTRICULAR HYPERTROPHY AND ST-T CHANGE POSSIBLE ANTERIOR MYOCARDIAL INFARCTION, OF INDETERMINATE AGE LAD INCREASED RATE 07/07/15 Electronically Signed On 10-13-2016 7:22:56 EST by Christa Whalen
[2016-10-13] MEDS: PANTOPRAZOLE 40MG INJ (PROTONIX) (C9113) IV SCH (08:37)
[2016-10-13] MEDS: MULTIVITAMINS/MINERALS THERAP 1 TAB PO SCH (08:38)
[2016-10-13] MEDS: SENOKOT S TAB PO SCH ×2 (08:38→21:35)
[2016-10-13] MEDS: OYSTER SHELL CALCIUM 500 MG TAB PO SCH ×2 (08:38→21:35)
[2016-10-13] MEDS: FLUDROCORTISONE ACETATE 0.1 MG TAB PO SCH (08:38)
[2016-10-13] MEDS: LORATADINE 10 MG TAB PO SCH (08:38)
[2016-10-13] MEDS: MEMANTINE 5MG TABLET (NAMENDA) PO SCH (08:38)
[2016-10-13] MEDS: LORazepam 0.5 MG TAB PO SCH (08:49)
[2016-10-13 09:06] LABS: VENOUS BASE EXCESS -1.7 (-2.0-2.0); VENOUS O2 SATURATION 99.4 % (60.0-80.0); VENOUS PARTIAL PRESSURE CO2 38.2 mmHg (38.0-50.0); VENOUS PARTIAL PRESSURE O2 163.3 mmHg (30.0-50.0); VENOUS STANDARD HCO3 23.1 MEQ/L
[2016-10-13 09:13] LABS: BASO % 0.4 % (0.0-1.0); EOS # 0.6 K/mm3 (0.0-0.50); LARGE UNSTAINED CELL # 0.2 K/mm3 (0.0-0.4); LARGE UNSTAINED CELL % 2.3 % (0.0-4.0); LYMPH # 0.8 K/mm3 (1.5-4.5); LYMPH % 8.8 % (24.0-44.0); MEAN CORPUSCULAR HEMOGLOBIN 31.3 pg (27.0-33.0); MEAN CORPUSCULAR HGB CONC 31.8 g/dl (32.0-36.5); MEAN CORPUSCULAR VOLUME 98.7 fl (80.0-96.0); MONO # 0.7 K/mm3 (0.0-0.8); MONO % 7.3 % (0.0-5.0); NEUTROPHILS # 6.7 K/mm3 (1.8-7.7); NEUTROPHILS % 74.3 % (36.0-66.0); PLATELET COUNT, AUTOMATED 226 k/mm3 (150-450); RED CELL DISTRIBUTION WIDTH 12.6 % (11.5-14.5)
--- NOTE | 2016-10-13 09:23 | REP ---
Clinical: Pleural effusion followup. Comparison: 10/12/2016. Findings: Right chest tube in stable position. Diffuse chronic fibrosis and interstitial changes noted throughout the bilateral lung ventura with suspected superimposed bibasilar infiltrate/atelectasis and small residual right pleural effusion. Opacity involving the right lung base may reflect the suspicious underlying area of consolidation/mass noted on CT. Mediastinum and cardiac silhouette stable. Skeletal structures intact. Impression: Bibasilar infiltrate/atelectasis and suspected small residual right pleural effusion. Right lower lobe density requires follow-up and further investigation to exclude mass. Signed by Fuad Wing MD 10/13/2016 09:14 A
[2016-10-13 09:36] LABS: ALBUMIN 2.3 GM/DL (3.2-5.2); ALBUMIN/GLOBULIN RATIO 0.61 (1.00-1.93); ALKALINE PHOSPHATASE 116 U/L (45-117); ALT/SGPT 20 U/L (12-78); ANION GAP 9 MEQ/L (8-16); AST/SGOT 16 U/L (15-37); BILIRUBIN,TOTAL 0.3 MG/DL (0.2-1.0); BLOOD UREA NITROGEN 18 MG/DL (7-18); CALCIUM LEVEL 8.1 MG/DL (8.8-10.2); CARBON DIOXIDE LEVEL 24 MEQ/L (21-32); CHLORIDE LEVEL 108 MEQ/L (98-107); CREATININE FOR GFR 0.74 MG/DL (0.55-1.02); GLOMERULAR FILTRATION RATE > 60.0 (>32); GLUCOSE, FASTING 139 MG/DL (83-110); MAGNESIUM LEVEL 1.9 MG/DL (1.8-2.4); SODIUM LEVEL 141 MEQ/L (136-145); TOTAL PROTEIN 6.1 GM/DL (6.4-8.2)
[2016-10-13 10:00] VITALS: BP 102/50
--- NOTE | 2016-10-13 11:27 | REP ---
Clinical: Suspected right lower lobe lung mass. Comparison: 10/12/2016. Findings: Recently placed right chest tube extends towards the posterior right apex and the pleural effusion is considerably decreased now demonstrating the possibility of small partially loculated areas of collection as well as rounded fluid collection extending into the major fissure. Diffuse chronic emphysematous changes and areas of fibrosis are noted bilaterally along with bronchiectasis and interstitial disease. Superimposed bibasilar atelectasis is suggested. There is a heterogeneous rounded complex area in the right lower lobe which is unchanged when compared to prior examination and concerning for mass. Osseous structures demonstrate chronic compression deformities at L1 and L2. Impression: Decreased right pleural effusion with fluid extending into the right minor fissure and trace scattered atelectasis along with chronic fibrosis and interstitial disease. Complex 4.4 cm mass/consolidation in the right lower lobe concerning for neoplasm. Chronic compression fractures at L1 and L2. Signed by Fuad Wing MD 10/13/2016 11:18 A
[2016-10-13] MEDS: VANCOMYCIN HCL 500 MG in D5W MINI-BAG PLUS 100 ML IV SCH (13:03)
--- NOTE | 2016-10-13 13:21 | IPN ---
DATE: 10/13/2016 Ms. Lopez drained 1200 mL from her chest tube insertion yesterday. Overnight, she has drained an approximate another 100 mL. She is not complaining of shortness of breath and is lying comfortably in bed. She is not talking very much today. She is only drinking Ensure. Her vital signs show a maximum temperature (t-max) of 96.6 with a heart rate that ranges between 66 and 86 in a sinus rhythm, respiratory rate of 18 to 22 without the use of accessory muscles, who is 98 to 99% saturated on 2 liters nasal cannula. Her blood pressure is ranging between 121/59 to 96/46. Her intake and output for the past 24 hours has been recorded as 1380 in and 292 out for a positivity of 1088 mL. She put out 90 mL from the chest tube after the initial 1200 mL. Weight today is 45.7 kg compared to 44 kg yesterday. PHYSICAL EXAMINATION: LUNGS: Her lungs show bibasilar crackles on both sides. These are fairly coarse and occur during mid to end inspiration. They do not clear with coughing. Percussion note is full to the diaphragm. CARDIAC EXAM: Without murmurs, clicks, gallops or rubs. I cannot feel her point of maximum impulse (PMI). S1, S2 are normal. ABDOMEN: Soft, nontender. Bowel sounds positive. There is no hepatomegaly. No costovertebral angle tenderness. EXTREMITIES: Show no pretibial edema. No calf tenderness. No differential swelling of the upper extremities. SKIN: Warm, dry and perfused without cyanosis or mottling, including that of the nail beds and knees. NECK: Supple. There is no jugular venous distention. No subcutaneous emphysema. Trachea is midline. MOUTH: Shows his mucous membranes to be pink and moist. Lips and commissures without lesions. There is no thrush. EYES: Show his pupils to be equal and reactive. Extraocular motions are intact. Sclerae nonicteric. NEUROLOGIC: Shows II through XII intact with gross motor and gross sensation intact. Gait is not tested. PSYCHIATRIC: Shows her to be awake and somnolent. I cannot superior court judge her mood and affect. Her white count today is 9.0 with a hemoglobin and hematocrit of 10.8 and 34.2, down from 12.5 and 39.9. Her platelet count is 226 and stable. Differential shows 74% neutrophils, 8% lymphocytes, 7% monocytes. There are no immature forms. No toxic granulations. Her electrolytes are essentially normal today with a BUN and creatinine of 18 and 0.74, improved from 31 and 1.12 yesterday with a GFR that is greater than 60. Calcium is 8.1 with a magnesium of 1.9. AST and ALT are 16 and 20, respectively. Albumin is 2.3 with a corresponding calcium of 8.1. Venous blood gas today shows a pH of 7.39, PCO2 of 38 and a PO2 of 163. I am questioning whether this is really a venous blood gas, although it was labeled as such. It looks more to be an arterial blood gas with a base excess of -1.7. Pleural fluid analysis shows a pH of 7.6 with a glucose of 118 and an LDH of 204 with a corresponding serum LDH of 294, given her a ratio of 0.69. Total protein is 5.5 with a corresponding total protein of 6.1, which gives her a ratio of greater than 0.5. There are 440 nucleated cells, 73% of which are lymphocytes, 13 are eosinophils, 7 are monocytes, and 7 are neutrophils. This therefore looks to be a mildly exudative lymphocytic effusion. Considering what her CAT scan showed yesterday with a potential right lower lobe mass and a potential adrenal mass, it would not surprise me if this is going to necktie turner to be malignant. IMPRESSION: 1. Mildly exudative lymphocytic effusion, origin unknown at this point in time, but suspect malignancy. 2. Probable congestive heart failure (CHF) with increased BNP. 3. Dementia. 4. Status post subarachnoid hemorrhage. 5. Status post subdural hemorrhage. 6. Syndrome of inappropriate secretion of antidiuretic hormone. 7. Osteoporosis. 8. Prior gastrointestinal bleeding. 9. Chronic anemia. 10. Renal insufficiency, resolving. 11. Chronic obstructive pulmonary disease (COPD) or at least emphysema. 12. Right lower lobe mass. 13. Right adrenal mass. PLAN AND DISCUSSION: I will order another CT scan now that her lung is fully expanded to the chest wall to investigate the right lower lobe mass that I did not quite see on the original CT yesterday when she had the pleural effusion. With that, I will have to make a decision in conjunction with her family as to whether we should biopsy this mass. I certainly do not think that she would be a candidate for chemotherapy, she is certainly not a candidate for either surgical intervention from both a resectional point of view and from a functional point of view.
--- NOTE | 2016-10-13 14:02 | RO ---
DATE OF PROCEDURE: 10/12/2016 PREPROCEDURE DIAGNOSIS: Right pleural effusion. POSTPROCEDURE DIAGNOSIS: Right pleural effusion. SURGEON: Earnest Patel MD PROCEDURE: Insertion of right lateral chest tube under moderate sedation. FINDINGS: Chest tube drained approximately 1200 mL of renee, clear fluid. ANESTHESIA: DESCRIPTION OF PROCEDURE: Under satisfactory moderate sedation achieved with 2 mg of Versed, the patient was prepped and draped in the usual sterile fashion. Incision was made and a tunnel created in the chest in the proximal sixth intercostal space. A #24 chest tube was placed without difficulty and the above results were noted. Specimen was sent for the requisite hematology, cytology, chemistries, and bacteriologies. The chest tube was secured to the chest wall with #2 Tevdek suture. The patient tolerated the procedure well and the chest x-ray is pending.
--- NOTE | 2016-10-13 14:04 | CR ---
DATE OF CONSULTATION: 10/12/2016 The patient is seen at the request of the hospitalist service for increasing shortness of breath and now a new pleural effusion. HISTORY OF THE PRESENT ILLNESS: The patient is an 86-year-old white female who while able to speak is an extraordinarily poor historian with a past medical history of subarachnoid hemorrhage along with a subdural hemorrhage. She is presently at the halfway. She was found to be having increased coughing with shortness of breath over the past 2 days and with increasing hypoxia requiring oxygen. She was, therefore, sent to the emergency room. She has moderate to severe dementia and is not able to give a cogent history. She was found to have a large pleural effusion, and I was asked to consider draining it to improve her hypoxia. PAST MEDICAL HISTORY: Subarachnoid hemorrhage. Subdural hemorrhage. Syndrome of inappropriate secretion of antidiuretic hormone (SIADH). Osteoporosis. Prior gastrointestinal (GI) bleeding. Chronic anemia. PAST SURGICAL HISTORY: Repair of a left intertrochanteric fracture with open reduction internal fixation (ORIF) of the left hip. HABITS: Has a prior history of smoking and also a prior history of alcohol abuse, according to the medical record. ALLERGIES: PENICILLIN and PENICILLIN CROSS REACTORS. FAMILY HISTORY: Not obtainable. TRAVEL HISTORY: Not obtainable. OCCUPATIONAL HISTORY: Not obtainable. REVIEW OF SYSTEMS: Not obtainable. HOME MEDICATIONS AT THE [facility]: - albuterol 2.5 mg nebs four times a day - fludrocortisone acetate 0.1 mg daily - loratadine 10 mg daily - lorazepam 0.5 mg daily - Namenda 10 mg daily - mirtazapine 30 mg nightly - multivitamin one daily - ranitidine 150 mg nightly - scopolamine transdermal 1.5 mg every 3 days - Senna one tablet twice a day - Spiriva 18 mcg one puff daily - Drisdol 50,000 units every 2 weeks PHYSICAL EXAMINATION: In the emergency room, she is a frail, cachectic, 86-year-old white female and subjectively in no acute distress. Blood pressure is 92/52 with a pulse of 72 and is sinus rhythm, a respiratory rate of 18 without the use of accessory muscles whose temperature is 96.6 and who is 92% saturated on 2 liters nasal cannula. EYES: Pupils equal, round and reactive to light. Extraocular motor intact. Sclerae nonicteric. NOSE: Without deformity. MOUTH: Shows her mucous membranes to be pink and moist. Lips and commissures without lesions. There is no thrush. HEAD: Normocephalic. NECK: Neck is supple. There is no jugular venous distention. No subcutaneous emphysema. Trachea is midline. LUNGS: Show markedly decreased breath sounds on the right side with a dull percussion note on the right side. CARDIAC: Exam is without murmurs, clicks, gallops or rubs. I cannot feel her point of maximum impulse (PMI). S1, S2 are normal. ABDOMEN: Soft, nontender. Bowel sounds are positive. There is no hepatomegaly. No costovertebral angle tenderness. EXTREMITIES: Show no pretibial edema. No calf tenderness. No differential swelling of the upper extremities. SKIN: Warm, dry and perfused without cyanosis. NEUROLOGIC: Shows gross motor and gross sensation intact along with gross II-XII intact. PSYCHIATRIC: Shows her to have dementia but is communicative and speaks haltingly in sentences. INVESTIGATIONS: Her white count is 9.7 with a hemoglobin and hematocrit of 12.5 and 39.9 and a platelet count of 306. Differential shows 86% neutrophils, 4% lymphocytes, 4% monocytes. There are no immature forms. No toxic granulations. Chemistries show essentially normal electrolytes with a BUN and creatinine of 31 and 1.12 with a mildly decreased glomerular filtration rate of 48.9. Glucose is 184 with a calcium of 9.7 and a beta natriuretic peptide of 261, above the normal 100. Her chest x-ray shows the right lower hemithorax opacified with a meniscus which looks all the world for as a pleural effusion. There is no lateral film. She has an increased stomach bubble. She has increased intravascular markings, both on the right and left side, with the right side being probably secondary to compression. CT scan confirms the right pleural effusion. In addition, there looks to be a potential mass in the right lower lobe, which does not look like compression. She has emphysematous changes in the left lung and the right upper lobe. I do not appreciate mediastinal lymphadenopathy. Great vessels are intact, and there is no pericardial effusion. She looks to have an adrenal mass on the right side. Adrenal has a normal configuration on the left side. I do not see liver lesions per se. IMPRESSION: 1. Probable heart failure. 2. Large right-sided pleural effusion. 3. Shortness of breath. 4. Possible right lower lobe mass. 5. Possible right adrenal mass. 6. Status post subdural hemorrhage. 7. Status post subarachnoid hemorrhage. 8. Syndrome of inappropriate secretion of antidiuretic hormone (SIADH). 9. At least emphysema if not chronic obstructive pulmonary disease (COPD). 10. Osteoporosis. 11. History of gastrointestinal (GI) bleeding. 12. Chronic anemia with mild macrocytosis. PLAN AND DISCUSSION: Her immediate life-threatening problem is the pleural effusion and I will drain it. After we drain the pleural effusion and have her lung expand, we will repeat the chest CT to look and see if the opacity that I am interpreting as a mass is real. She may have metastatic carcinoma if both the lung mass and the renal mass are related.
--- NOTE | 2016-10-13 14:18 | IPNPDOC ---
Text Note Date of Service The patient was seen on 10/13/16 at 14:13. NOTE Subjective: Patient states her shortness of breath has improved. Denies any chest pain/palpitations. Objective: Vitals: (see below) PHYSICAL EXAMINATION: Vitals: (see below) General: No acute distress, laying comfortably in bed. HEENT: Moist mucous membranes. Neck: No JVD or lymphadenopathy Cardiac: RRR, No murmurs Pulm: Diminshed breath sounds and coarse crackles R>L b/l. No wheezing, no rhonchi. Right chest tube intact to suction. No drainage at the insertion site. Abd: NT/ND + BS Ext: No edema or cyanosis LABORATORY DATA: See below. IMAGING: CT chest with contrast 10/12/16 Findings: Satisfactory enhancement of the pulmonary vasculature is achieved and no filling defects are identified to suggest pulmonary embolus. Atherosclerotic changes to the thoracic aorta and coronary arteries noted without cardiomegaly and no evidence for thoracic aortic aneurysm or dissection. There is a large right pleural effusion with scattered passive atelectasis as well as ill-defined area of heterogeneous consolidation in the right lower lobe and underlying mass/neoplasm cannot be excluded. Underlying chronic interstitial changes and fibrosis/scarring noted throughout the aerated lung ventura. Skeletal structures demonstrate age-related degenerative changes. Limited evaluation of the upper abdomen suggests heterogeneous right adrenal lesion measuring approximately 13 mm. Impression: Large right pleural effusion with associated passive atelectasis. Heterogeneous area of consolidation in the atelectatic right lower lobe requires followup to exclude mass/neoplasm. Heterogeneous enhancing lesion in the right adrenal gland cannot be excluded. CXR 10/12/16 Impression: [id number] right pleural effusion with right lower lobe atelectasis. CT Chest 10/13/16 Impression: Decreased right pleural effusion with fluid extending into the right minor fissure and trace scattered atelectasis along with chronic fibrosis and interstitial disease. Complex 4.4 cm mass/consolidation in the right lower lobe concerning for neoplasm. Chronic compression fractures at L1 and L2. ASSESSMENT/PLAN: Hypoxia secondary to large pleural effusion with 4.4cm mass. There are areas of consolidation and given the patient's symptoms of cough as well as from a [facility] setting will start patient on vancomycin and Levaquin while cultures are pending. We'll trend WBCs and CRP. De-escalate antibiotics based on cultures. Patient is saturating well on a nasal cannula. Dr. Patel has been consulted and has placed a right chest tube, with greater than 1 L drained , mild exudative. We'll need to discuss with the family regarding a possible biopsy of the lung mass, although the treatment options are limited. 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 No acute bleeding. We'll continue to monitor hemoglobin. DVT prophylaxis-Lovenox VS,Fishbone, I+O VS, Fishbone, I+O Laboratory Tests 10/13/16 08:57 Red Blood Count 3.46 L, Mean Corpuscular Volume 98.7 H, Mean Corpuscular Hemoglobin 31.3, Mean Corpuscular Hemoglobin Concent 31.8 L, Red Cell Distribution Width 12.6, Neutrophils (%) (Auto) 74.3 H, Lymphocytes (%) (Auto) 8.8 L, Monocytes (%) (Auto) 7.3 H, Eosinophils (%) (Auto) 7.0 H, Basophils (%) ( Auto) 0.4, Neutrophils # (Auto) 6.7, Lymphocytes # (Auto) 0.8 L, Monocytes # ( Auto) 0.7, Eosinophils # (Auto) 0.6 H, Basophils # (Auto) 0.0 10/13/16 08:58 Calcium Level 8.1 #L, Aspartate Amino Transf (AST/SGOT) 16, Alanine Aminotransferase (ALT/SGPT) 20, Alkaline Phosphatase 116, Total Bilirubin 0.3, Total Protein 6.1 L, Albumin 2.3 L Vital Signs Date Time Temp Pulse Resp B/P Pulse Ox O2 Delivery O2 Flow Rate FiO2 10/13/16 10:00 96.6 86 22 102/50 98 Nasal Cannula 2.0 I&O- Last 24 Hours up to 6 AM 10/13/16 06:00 Intake Total 1820 ml Output Total 1404 ml Balance 416 ml TIMUR BRODERICK MD Oct 13, 2016 14:18
[2016-10-13] MEDS: LevoFLOXacin 250 MG in APPROPRIATE DILUENT 1 EA IV SCH (15:46)
[2016-10-13 16:00] VITALS: BP 112/55
[2016-10-13 20:29] VITALS: BP 115/61
[2016-10-13] MEDS: MIRTAZAPINE 15 MG TAB PO SCH (21:35)
[2016-10-13] MEDS: FAMOTIDINE 20 MG TAB PO SCH (21:35)
[2016-10-13 23:23] VITALS: BP 116/64
[2016-10-14] MEDS ORDERED: SLF 3 ML SYR IV PRN (03:45)
[2016-10-14 04:25] VITALS: BP 127/57
[2016-10-14] MEDS: PERCOCET 5MG/325MG TAB PO PRN ×2 (04:36→11:53)
[2016-10-14] MEDS: SLF 3 ML SYR IV SCH ×3 (04:37→21:03)
[2016-10-14 05:27] LABS: BASO % 0.3 % (0.0-1.0); EOS # 0.5 K/mm3 (0.0-0.50); EOS % 6.1 % (0.0-3.0); LARGE UNSTAINED CELL # 0.3 K/mm3 (0.0-0.4); LARGE UNSTAINED CELL % 3.7 % (0.0-4.0); LYMPH # 0.9 K/mm3 (1.5-4.5); LYMPH % 11.1 % (24.0-44.0); MEAN CORPUSCULAR HEMOGLOBIN 31.1 pg (27.0-33.0); MEAN CORPUSCULAR HGB CONC 32.2 g/dl (32.0-36.5); MEAN CORPUSCULAR VOLUME 96.6 fl (80.0-96.0); MONO # 0.7 K/mm3 (0.0-0.8); MONO % 8.6 % (0.0-5.0); NEUTROPHILS # 5.5 K/mm3 (1.8-7.7); NEUTROPHILS % 70.3 % (36.0-66.0); PLATELET COUNT, AUTOMATED 240 k/mm3 (150-450); RED CELL DISTRIBUTION WIDTH 12.6 % (11.5-14.5); WHITE BLOOD COUNT 7.8 K/mm3 (4.0-10.0)
[2016-10-14 05:42] LABS: ANION GAP 6 MEQ/L (8-16); BLOOD UREA NITROGEN 12 MG/DL (7-18); CALCIUM LEVEL 8.5 MG/DL (8.8-10.2); CARBON DIOXIDE LEVEL 28 MEQ/L (21-32); CHLORIDE LEVEL 105 MEQ/L (98-107); CREATININE FOR GFR 0.65 MG/DL (0.55-1.02); GLOMERULAR FILTRATION RATE > 60.0 (>32); GLUCOSE, FASTING 95 MG/DL (83-110); POTASSIUM SERUM 4.1 MEQ/L (3.5-5.1); SODIUM LEVEL 139 MEQ/L (136-145)
[2016-10-14 08:00] VITALS: BP 133/58
[2016-10-14] MEDS: TIOTROPIUM INHALER/CAPSULE (SPIRIVA) INH SCH (08:47)
[2016-10-14] MEDS: ALBUTEROL SULFATE 2.5 MG/0.5 ML INH NEB SOLN INH SCH ×4 (08:47→20:17)
--- NOTE | 2016-10-14 09:34 | REP ---
Chest x-ray: Two views. History: Pleural effusion. Comparison chest x-ray October 13, 2016. Findings: EKG monitoring electrodes overlie the chest. A right chest tube remains in place unchanged. There is some blunting of the right lateral pleural angle and pleural opacity persists posteriorly on the right unchanged. There is no visible pneumothorax. Bibasilar interstitial fibrosis pattern persists. No new infiltrate. Heart size is borderline unchanged. Signed by Phill Fuentes MD 10/14/2016 01:35 P
[2016-10-14] MEDS: LORazepam 0.5 MG TAB PO SCH (10:01)
[2016-10-14] MEDS: PANTOPRAZOLE 40MG INJ (PROTONIX) (C9113) IV SCH (10:01)
[2016-10-14] MEDS: MULTIVITAMINS/MINERALS THERAP 1 TAB PO SCH (10:02)
[2016-10-14] MEDS: SENOKOT S TAB PO SCH ×2 (10:02→21:03)
[2016-10-14] MEDS: OYSTER SHELL CALCIUM 500 MG TAB PO SCH ×2 (10:02→21:03)
[2016-10-14] MEDS: MEMANTINE 5MG TABLET (NAMENDA) PO SCH (10:02)
[2016-10-14] MEDS: LORATADINE 10 MG TAB PO SCH (10:02)
[2016-10-14] MEDS: VANCOMYCIN HCL 500 MG in D5W MINI-BAG PLUS 100 ML IV SCH (11:52)
[2016-10-14] MEDS: FLUDROCORTISONE ACETATE 0.1 MG TAB PO SCH (11:58)
[2016-10-14 12:00] VITALS: BP 115/56
--- NOTE | 2016-10-14 13:15 | PHACANCOPD ---
PHARMACY VANCOMYCIN DOSING Pt Demographics Demographics Patient Age:86 , Weight:45.000 , Gender: female Adjusted Body Weight Date: 10/12/16, Adjusted Body Weight: [44] Kg Events Past 24 Hours Events Past 24 Hours: YES: Pending Diagnostics Vancomycin Vancomycin indication: Pneumonia Vancomycin Target Ranges: 15-20 mcg/ml Vancomycin Load Y/N: Yes Load Dose Date Time Vancomycin Load Dose: 1g Date: 10/12/16 Time: 1600 Vancomycin Dose Date: 10/14/16. Current Vancomycin Dose: [1G IV Q24H] Date: 10/12/16. Current Vancomycin Dose: [500mg IV Q24H] Intermittent Dosing?: No Labs Labs Item Value Date Time White Blood Count 9.0 K/mm3 10/13/16 0857 White Blood Count 7.8 K/mm3 10/14/16 0432 Creatinine 0.74 MG/DL 10/13/16 0858 Creatinine 0.65 MG/DL 10/14/16 0432 Vancomycin Level Trough 8.5 UG/ML L 10/14/16 1051 Micro Microbiology 10/12/16 Blood Culture - Preliminary, Resulted No Growth after 48 hours. All Specime... 10/12/16 Blood Culture - Preliminary, Resulted No Growth after 48 hours. All Specime... 10/12/16 Acid Fast Stain, Received Pending 10/12/16 Mycobacterial Culture, Received Pending 10/12/16 Fungal Smear, Received Pending 10/12/16 Fungal Culture, Received Pending 10/12/16 Gram Stain - Final, Complete 10/12/16 Body Fluid Culture - Final, Complete 10/12/16 Anaerobic Culture - Final, Complete Creatinine Clearance Date:10/14/16. Creatinine Clearance: [58ML/MIN]. Date:10/12/16. Estimated Creatinine Clearance: [~30 ml/min]. Assessment and Plan Maintaining Current Dose?: No Reason for dose change: Trough too low Pharmacist Note Pharmacist Note Date: 10/14/16. Pharmacist note:Pt trough came back at 8.5mcg/ml at ~1100. Pts wbc and temp are still within normal limits, pleural effusion culture is pending. Pts creatinine has improved to ~58ml/min vanco half life for this pt was estimated at ~20 hours. To increase trough value an additional 500mg dose was given 10/14/16 for a total of 1g for the day. Maintenance dose was increased to 1g q24h @12 starting 10/15/16 a trough was scheduled for 10/17/16 @11. We will continue to monitor and adjust as needed. Date: 10/12/16. Pharmacist note: Day #1 vancomycin initiated with a 1g loading dose, followed by a maintenance regimen of 500 mg IV Q24H for the treatment of pneumonia - aiming for a goal trough of 15-20 mcg/ml. WBC currently WNL, and lactic acid is elevated. 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 We will continue to monitor the patient and schedule a trough accordingly. [facility] Oct 14, 2016 13:15
[2016-10-14] MEDS ORDERED: VANCOMYCIN HCL 500 MG in D5W MINI-BAG PLUS 100 ML IV ONE (14:00)
--- NOTE | 2016-10-14 14:36 | EDDOCDS ---
Physician Documentation [facility] Name: Krys Lopez Age: 86 yrs Sex: Female : 1930 Arrival Date: 10/12/2016 Time: 09:34 Bed 4 Private MD: Tania Griffin E Disposition: 10/12/16 11:49 Hospitalization ordered by Lam Estrada for Inpatient Admission. Preliminary diagnosis is Pleural effusion in conditions classified elsewhere. - Bed requested for PCU. - Status is Inpatient Admission. hs1 - Condition is Stable. - Problem is new. - Symptoms are unchanged. Historical: - Allergies: PENICILLINS; - Home Meds: 1. albuterol sulfate 2.5 mg/0.5 mL Nebulizer nebu 4 times per day 2. Oyster Shell Calcium 500 500 mg Oral tab daily 3. potassium chloride 10 mEq Oral cpER 2 caps once daily 4. Zioptan (PF) 0.0015 % ophthalmic dpet 1 drop once daily 5. Tylenol 325 mg Oral tab 2 tabs every 6 hours 6. Zantac 150 mg Oral tab 1 tab once daily 7. Senokot 8.6 mg Oral tab 1 tabs twice a day 8. multivitamin Oral tab 1 tablet daily 9. Claritin 10 mg oral tab 1 tab once daily 10. fludrocortisone 0.1 mg oral tab 1 tab once daily 11. Vitamin D2 50,000 unit oral cap every two weeks 12. mirtazapine 30 mg Oral tab 1 tab once daily 13. Namenda 10 mg oral tab 1 tab daily 14. Milk of Magnesia Oral 10 mL as needed 15. Refresh Tears 0.5 % ophthalmic drop 16. Ativan 0.25mg Oral tab once daily 17. Protopic 0.1 % topical oint as needed 18. Transderm-Scop 1.5 mg (1 mg over 3 days) TD pt3d 1 patch - PMHx: CVA; Hypertension; Seizure Disorder; COPD; GERD; - PSHx: Tonsillectomy; - Social history: Smoking status: Patient states was never smoker of tobacco. No barriers to communication noted, The patient speaks fluent Upper Sorbian, Speaks appropriately for age. - Family history: No immediate family members are acutely ill. - : The pt / caregiver states he / she is not on anticoagulants. Home medication list is obtained from the facility NOV. - Exposure Risk Screening:: None identified. Vital Signs: 10/12 09:36 BP 92 / 54; Pulse 72; Resp 18; Temp 96.6; Pulse Ox 92% on 2 lpm NC; Weight 44 kg / 97 elp lbs; Height 61 in. (154.94 cm); 09:44 BP 116 / 61 (auto/); hs1 09:45 Pulse 74 MON; Pulse Ox 91% ; hs1 11:28 BP 115 / 55 (auto/); hs1 11:28 Pulse 70 MON; Pulse Ox 91% ; hs1 11:43 BP 110 / 57 (auto/); hs1 11:43 Pulse 74 MON; Pulse Ox 94% ; hs1 12:13 BP 131 / 60 (auto/); hs1 12:13 Pulse 74 MON; Pulse Ox 91% ; hs1 12:28 BP 123 / 62 (auto/); hs1 12:28 Pulse 70 MON; Pulse Ox 92% ; hs1 12:43 BP 128 / 60 (auto/); hs1 12:43 Pulse 68 MON; Pulse Ox 94% ; hs1 12:58 BP 130 / 68 (auto/); hs1 12:58 Pulse 64 MON; Pulse Ox 94% ; hs1 13:31 BP 132 / 58; Pulse 68; Resp 18; Temp 98.4; Pulse Ox 94% 2 lpm ; hs1 09:36 Body Mass Index 18.33 (44.00 kg, 154.94 cm) elp MDM: 09:39 -Blood Culture (Adults Only), peripheral from different site, or from device/port/PICC sd1 etc. if present ordered. 09:39 Chemist Assistant/Pulse Ox/q 15 min VS ordered. sd1 09:39 IV Saline Lock ordered. sd1 09:40 Oxygen at 4L/Min NC or Home dosage ordered. sd1 09:40 Rhythm Strip to chart ordered. sd1 09:41 B-Type Natiuretic Peptide Ordered. EDMS 09:41 Basic Metabolic Profile Ordered. EDMS 09:41 CBC with Diff Ordered. EDMS 09:41 Cardiac Injury Profile Ordered. EDMS 09:41 Troponin Ordered. EDMS 09:41 -Blood Culture Ordered. EDMS 09:41 Chest, 1 View Ordered. EDMS 09:41 ECG WITH READING ER PHYS+CARDIAG ordered. EDMS 09:41 Lactic Acid (Ford tube on ice) Ordered. EDMS 09:44 Orthostatic VS ordered. sd1 09:58 -Blood Culture (Adults Only), peripheral from different site, or from device/port/PICC deg etc. if present complete. 09:59 BLOOD CULTURES Ordered. EDMS 10:27 [facility] Payment Agreement was scanned into [email or web address] and attached to record. jp5 10:27 Financial registration complete. jp5 10:31 BED REQUEST+ADM ordered. EDMS 10:53 Basic Metabolic Profile Reviewed. sd1 10:53 CBC with Diff Reviewed. sd1 10:53 Cardiac Injury Profile Reviewed. sd1 10:53 Troponin Reviewed. sd1 10:53 Chest, 1 View Reviewed. sd1 10:53 PT/INR Ordered. EDMS 10:56 CT Chest With Contrast Ordered. EDMS 11:25 B-Type Natiuretic Peptide Reviewed. sd1 11:25 Basic Metabolic Profile Reviewed. sd1 11:25 Lactic Acid (Ford tube on ice) Reviewed. sd1 11:25 Cardiac Injury Profile Reviewed. sd1 11:25 Troponin Reviewed. sd1 12:19 Admission / Observation Status ordered. EDMS 12:19 NPO DIET ordered. EDMS 12:21 PHYSICAL THERAPY EVAL & TREAT ordered. EDMS 12:44 T-Sheet-- Draft Copy was scanned into [email or web address] and attached to record. [facility] 14:37 ECG/EKG was scanned into [email or web address] and attached to record. 14:38 Radiology Report was scanned into [email or web address] and attached to record. gb Signatures: Dispatcher [employer] EDIL Christa Whalen MD MD sd1 Arlene Quezada, Billing And Quality Technician Unit deg Chantelle Billingsley, Reg Reg Barron Diane RN RN mlb1 More Shay RN RN hs1 Cindy Robles RN Flavio Sanchez 5 Christa Monsivais [facility] The chart was reviewed and I authenticate all verbal orders and agree with the evaluation and treatment provided.Corrections: (The following items were deleted from the chart) 12:57 12:19 PROTHROMBIN TIME PROFILE\E\INR ordered. EDMS EDMS 12:57 12:20 PARTIAL THROMBOPLASTIN TIME ordered. EDIL EDMS Attachments: 10:27 [facility] Payment Agreement [facility] 12:44 T-Sheet-- Draft Copy se 14:37 ECG/EKG gb Chart Complete MTDD
--- NOTE | 2016-10-14 14:36 | EDDOCDS ---
Nurse's Notes [facility] Name: Krys Lopez Age: 86 yrs Sex: Female : 1930 Arrival Date: 10/12/2016 Time: 09:34 Bed 4 Private MD: Tania Griffin E Diagnosis: Pleural effusion in conditions classified elsewhere Presentation: 10/12 09:43 Presenting complaint: Sent here from [facility] increased SOB. Adult Sepsis Screening: The mlb1 patient does not have new or worsening altered mentation. Patient's respiratory rate is less than 22. Systolic blood pressure is greater than 100. Patient has a qSOFA score of 0- Negative Sepsis Screen. Suicide/Homicide risk assessment- the patient denies having any suicidal and/or homicidal ideations and does not present with any other emotional, behavioral or mental health complaints. Status: Patient is not a child and family services worker or dependent. Transition of care: patient was received from [facility]. 09:43 Acuity: BLAYNE Level 3 mlb1 09:43 Method Of Arrival: Walkin/Carried/Asstd mlb1 Triage Assessment: 09:44 General: Appears in no apparent distress, comfortable, Behavior is appropriate for age, mlb1 cooperative. Pain: Denies pain. The patient is triaged at the bedside. See Assessment in Nurses Notes section of ED record. Neurological: Level of Consciousness is awake, alert, Oriented to person, place, time. Respiratory: Onset: The symptoms/episode began/occurred gradually, Airway is patent Respiratory effort is even, unlabored. Historical: - Allergies: PENICILLINS; - Home Meds: 1. albuterol sulfate 2.5 mg/0.5 mL Nebulizer nebu 4 times per day 2. Oyster Shell Calcium 500 500 mg Oral tab daily 3. potassium chloride 10 mEq Oral cpER 2 caps once daily 4. Zioptan (PF) 0.0015 % ophthalmic dpet 1 drop once daily 5. Tylenol 325 mg Oral tab 2 tabs every 6 hours 6. Zantac 150 mg Oral tab 1 tab once daily 7. Senokot 8.6 mg Oral tab 1 tabs twice a day 8. multivitamin Oral tab 1 tablet daily 9. Claritin 10 mg oral tab 1 tab once daily 10. fludrocortisone 0.1 mg oral tab 1 tab once daily 11. Vitamin D2 50,000 unit oral cap every two weeks 12. mirtazapine 30 mg Oral tab 1 tab once daily 13. Namenda 10 mg oral tab 1 tab daily 14. Milk of Magnesia Oral 10 mL as needed 15. Refresh Tears 0.5 % ophthalmic drop 16. Ativan 0.25mg Oral tab once daily 17. Protopic 0.1 % topical oint as needed 18. Transderm-Scop 1.5 mg (1 mg over 3 days) TD pt3d 1 patch - PMHx: CVA; Hypertension; Seizure Disorder; COPD; GERD; - PSHx: Tonsillectomy; - Social history: Smoking status: Patient states was never smoker of tobacco. No barriers to communication noted, The patient speaks fluent Romanian, Speaks appropriately for age. - Family history: No immediate family members are acutely ill. - : The pt / caregiver states he / she is not on anticoagulants. Home medication list is obtained from the facility NOV. - Exposure Risk Screening:: None identified. Screenin:57 Advance Directives: There is an active DNR order and the pt has a copy here at this mlb1 time. 11:28 Screening information is obtained from the patient, prior medical records. Fall risk: hs1 At risk due to age, apparent cognitive impairment, gait disturbance, The following interventions are performed due to a positive Fall Risk Screen: Fall Risk is added to Special Handling on the patient Summary Screen. A Fall Risk Bracelet was applied to the patient. Side Rails are placed in the up position. A Call [facility] is given with instruction to call for help when getting out of bed. Fall Alert bracelet is placed on the patient. Assistance ADL's: Requires assistance with meal preparation, this assistance is provided by residence staff, bathing, assistance is provided by residence staff, toileting, assistance is provided by residence staff, ambulation, assistance is provided by residence staff, housework, assistance is provided by residence staff, medication administration, assistance is provided by residence staff. Abuse/DV Screen: The patient / caregiver reports he/she is: not in a situation that causes fear, pain or injury. Nutritional screening: No deficits noted. home support is adequate. Assessment: 10:05 General: Appears in no apparent distress, slender, Behavior is cooperative. Pain: hs1 Denies pain. Neurological: Level of Consciousness is confused, obeys commands. Cardiovascular: Rhythm is regular. Cardiovascular: Capillary refill is sluggish fingers are cold. . Edema is absent. Cardiovascular: Chest pain is denied. Respiratory: Airway is patent Respiratory effort is even, unlabored, Pleural rub noted bilaterally. Derm: Skin is pink, warm & dry. normal. 10:53 General: Appears to have moments of confusion, yelling for help usually after waking hs1 up. Patient comforted and resting at present. Given warm blankets. . 11:26 General: Appears in no apparent distress, Pt returned from CT scan with no complaints. hs1 Patient asked for cold water and MD aware or request. Patient does not appear SOB. . 12:48 Adult Sepsis Screening: The patient does not have new or worsening altered mentation. hs1 Patient's respiratory rate is less than 22. Systolic blood pressure is greater than 100. Patient has a qSOFA score of 0- Negative Sepsis Screen. General: Appears in no apparent distress, Behavior is appropriate for age, cooperative. Pain: Denies pain. Cardiovascular: Capillary refill < 3 seconds Edema is absent. Rhythm is regular. Vital Signs: 09:36 BP 92 / 54; Pulse 72; Resp 18; Temp 96.6; Pulse Ox 92% on 2 lpm NC; Weight 44 kg; elp Height 61 in. (154.94 cm); 09:44 BP 116 / 61 (auto/); hs1 09:45 Pulse 74 MON; Pulse Ox 91% ; hs1 11:28 BP 115 / 55 (auto/); hs1 11:28 Pulse 70 MON; Pulse Ox 91% ; hs1 11:43 BP 110 / 57 (auto/); hs1 11:43 Pulse 74 MON; Pulse Ox 94% ; hs1 12:13 BP 131 / 60 (auto/); hs1 12:13 Pulse 74 MON; Pulse Ox 91% ; hs1 12:28 BP 123 / 62 (auto/); hs1 12:28 Pulse 70 MON; Pulse Ox 92% ; hs1 12:43 BP 128 / 60 (auto/); hs1 12:43 Pulse 68 MON; Pulse Ox 94% ; hs1 12:58 BP 130 / 68 (auto/); hs1 12:58 Pulse 64 MON; Pulse Ox 94% ; hs1 13:31 BP 132 / 58; Pulse 68; Resp 18; Temp 98.4; Pulse Ox 94% 2 lpm ; hs1 09:36 Body Mass Index 18.33 (44.00 kg, 154.94 cm) elp Vitals: 09:36 Log In Time: October 12, 2016 at 09:34. RN notified that patient meets Red Flag elp criteria. ED Course: 09:35 Patient visited by Priscilla Leone PCA. elp 09:35 Patient moved to Waiting elp 09:36 Tania Griffin is Private Physician. elp 09:36 Patient visited by Priscilla Leone PCA. elp 09:37 More Shay, RN is Primary Nurse. elp 09:37 Patient moved to Pre RCE elp 09:37 Patient moved to 4 elp 09:41 Christa Whalen MD is Attending Physician. sd1 09:41 Patient visited by Christa Whalen MD. sd1 09:42 Patient visited by Barron Davis RN. mlb1 09:44 Triage Initiated mlb1 10:00 Pt greeted and oriented to ED. Patient advised of names of staff involved in care, jrd location of call solis, wait times and NPO status. Patient has correct armband on for positive identification. Placed in gown. Bed in low position. Call light in reach. Side rails up X2. residential monitor on. Pulse ox on. NIBP on. 10:00 EKG done. (by ED staff). Reviewed by Christa Whalen MD. jrd 10:01 Patient visited by Geovanny Sharma PCA. jrd 10:05 Inserted saline lock: 20 gauge in left antecubital area and blood collected. The hs1 patient tolerated the procedure well. 10:23 -Blood Culture Sent. hs1 10:23 B-Type Natiuretic Peptide Sent. hs1 10:23 Basic Metabolic Profile Sent. hs1 10:23 CBC with Diff Sent. hs1 10:23 Cardiac Injury Profile Sent. hs1 10:23 Troponin Sent. hs1 10:23 Lactic Acid (Ford tube on ice) Sent. hs1 10:27 [facility] Payment Agreement was scanned into [employer] and attached to record. jp5 10:48 Chest, 1 View Returned. EDMS 10:51 Patient visited by More Shay RN. hs1 11:26 Patient visited by More Shay RN. hs1 11:28 The patient / caregiver is instructed regarding the plan of care and ED course. hs1 11:30 PT/INR Sent. hs1 11:48 Lam Estrada is Hospitalizing Provider. sd1 12:12 CT Chest With Contrast Returned. EDMS 12:44 T-Sheet-- Draft Copy was scanned into [employer] and attached to record. seh 13:30 No procedures done that require assistance. hs1 14:37 ECG/EKG was scanned into [employer] and attached to record. gb 14:38 Patient visited by Chantelle Billingsley Reg. gb 14:38 Radiology Report was scanned into [employer] and attached to record. gb Order Results: Lab Order: B-Type Natiuretic Peptide; SPEC'M 10/12/16 10:04 Test: BRAIN NATRIURETIC PEPTIDE; Value: 261; Range: <100; Abnormal: Above high normal; Units: PG/ML; Status: F Lab Order: Basic Metabolic Profile; SPEC'M 10/12/16 10:04 Test: GLUCOSE, FASTING; Value: 184; Range: 83-110; Abnormal: Above high normal; Units: MG/DL; Status: F Test: BLOOD UREA NITROGEN; Value: 31; Range: 7-18; Abnormal: Above high normal; Units: MG/DL; Status: F Test: CREATININE FOR GFR; Value: 1.12; Range: 0.55-1.02; Abnormal: Above high normal; Units: MG/DL; Status: F Test: GLOMERULAR FILTRATION RATE; Value: 48.9; Range: >32; Status: F Test: SODIUM LEVEL; Value: 144; Range: 136-145; Units: MEQ/L; Status: F Test: POTASSIUM SERUM; Value: 4.1; Range: 3.5-5.1; Units: MEQ/L; Status: F Test: CHLORIDE LEVEL; Value: 108; Range: 98-107; Abnormal: Above high normal; Units: MEQ/L; Status: F Test: CARBON DIOXIDE LEVEL; Value: 30; Range: 21-32; Units: MEQ/L; Status: F Test: ANION GAP; Value: 6; Range: 8-16; Abnormal: Below low normal; Units: MEQ/L; Status: F Test: CALCIUM LEVEL; Value: 9.7; Range: 8.8-10.2; Units: MG/DL; Status: F Test Note: ; Units are mL/min/1.73 m2 Chronic Kidney Disease Staging per NKF: Stage I & II GFR >=60 Normal to Mildly Decreased Stage III GFR 30-59 Moderately Decreased Stage IV GFR 15-29 Severely Decreased Stage V GFR <15 Very Little GFR Left ESRD GFR <15 on STRETCHER HELPER Lab Order: CBC with Diff; SPEC'M 10/12/16 10:04 Test: WHITE BLOOD COUNT; Value: 9.7; Range: 4.0-10.0; Units: K/mm3; Status: F Test: RED BLOOD COUNT; Value: 4.08; Range: 4.00-5.40; Units: M/mm3; Status: F Test: HEMOGLOBIN; Value: 12.5; Range: 12.0-16.0; Units: g/dl; Status: F Test: HEMATOCRIT; Value: 39.9; Range: 36.0-47.0; Units: %; Status: F Test: MEAN CORPUSCULAR VOLUME; Value: 97.8; Range: 80.0-96.0; Abnormal: Above high normal; Units: fl; Status: F Test: MEAN CORPUSCULAR HEMOGLOBIN; Value: 30.6; Range: 27.0-33.0; Units: pg; Status: F Test: MEAN CORPUSCULAR HGB CONC; Value: 31.3; Range: 32.0-36.5; Abnormal: Below low normal; Units: g/dl; Status: F Test: RED CELL DISTRIBUTION WIDTH; Value: 12.7; Range: 11.5-14.5; Units: %; Status: F Test: PLATELET COUNT, AUTOMATED; Value: 306; Range: 150-450; Units: k/mm3; Status: F Test: NEUTROPHILS %; Value: 86.0; Range: 36.0-66.0; Abnormal: Above high normal; Units: %; Status: F Test: LYMPH %; Value: 4.9; Range: 24.0-44.0; Abnormal: Below low normal; Units: %; Status: F Test: MONO %; Value: 4.3; Range: 0.0-5.0; Units: %; Status: F Test: EOS %; Value: 3.5; Range: 0.0-3.0; Abnormal: Above high normal; Units: %; Status: F Test: BASO %; Value: 0.2; Range: 0.0-1.0; Units: %; Status: F Test: LARGE UNSTAINED CELL %; Value: 1.1; Range: 0.0-4.0; Units: %; Status: F Test: NEUTROPHILS #; Value: 8.3; Range: 1.8-7.7; Abnormal: Above high normal; Units: K/mm3; Status: F Test: LYMPH #; Value: 0.5; Range: 1.5-4.5; Abnormal: Below low normal; Units: K/mm3; Status: F Test: MONO #; Value: 0.4; Range: 0.0-0.8; Units: K/mm3; Status: F Test: EOS #; Value: 0.3; Range: 0.0-0.50; Units: K/mm3; Status: F Test: BASO #; Value: 0.0; Range: 0.0-0.2; Units: K/mm3; Status: F Test: LARGE UNSTAINED CELL #; Value: 0.1; Range: 0.0-0.4; Units: K/mm3; Status: F Lab Order: Cardiac Injury Profile; SPEC'10/12/16 10:04 Test: CPK CREATINE PHOSPHOKINASE; Value: 50; Range: 26-192; Units: U/L; Status: F Test: CK-MB VALUE MASS; Value: 1.0; Range: 0.0-3.6; Units: NG/ML; Status: F Test: MB/CK RELATIVE INDEX; Value: 2.00; Range: < OR =4; Status: F Test Note: ; DIAGNOSIS CRITERIA MMB ng/ml Relative Index (RI) NON-AMI < or = 5 N/A FORD ZONE > 5 < or = 4 AMI > 5 > 4 Lab Order: Troponin; SPEC'M 10/12/16 10:04 Test: TROPONIN I; Value: < 0.02; Range: < 0.10; Units: NG/ML; Status: F Test Note: ; Troponin I Reference Interval for [employer] LOCI: 99th Percentile= 0.00-0.045 ng/ml Risk Stratification: <= 0.10 ng/ml Decreased Risk for Adverse Clinical Events. 0.10-1.50 ng/ml Increased Risk for Adverse Clinical Events. Evaluation of additional criterion and/or repeat testing in 2-6 hours is suggested to rule out myocardial damage. >= 1.50 ng/ml Indicative of Myocardial Injury. Lab Order: Lactic Acid (Ford tube on ice); SPEC'M 10/12/16 10:05 Test: LACTIC ACID LEVEL, LACTATE; Value: 2.1; Range: 0.4-2.0; Abnormal: Above high normal; Units: MMOL/L; Status: F Lab Order: PT/INR; SPEC'M 10/12/16 10:06 Test: PROTHROMBIN TIME; Value: 13.3; Range: 12.3-14.5; Units: SECONDS; Status: F Test: INR; Value: 1.00; Status: F Test Note: ; THERAPUTIC HUMAN INR VALUES INDICATIONS NORMAL RANGES PROPHYLAXIS/TREATMENT OF: VENOUS THROMBOSIS 2.0-3.0 PULMONARY EMBOLISM 2.0-3.0 PREVENTION OF SYSTEMIC EMBOLISM FROM: TISSUE HEART VALVES 2.0-3.0 ACUTE MYOCARDIAL INFARCTION 2.0-3.0 VALVULAR HEART DISEASE 2.0-3.0 ATRIAL FIBRILLATION 2.0-3.0 MECHANICAL VALVES(HIGH RISK) 2.5-3.5 RECURRENT MYOCARDIAL INFARCTION 2.5-3.5 Radiology Order: Chest, 1 View Test: Chest, 1 View REASON FOR EXAMINATION: Shortness of Breath; Clinical: Shortness of breath.; ; Comparison: 10/18/2015.; ; Findings:; Superimposed moderate to large right pleural effusion with right lower lobe; atelectasis appreciated.; ; Diffuse chronic interstitial changes noted with fibrosis and scarring.; Mediastinum and cardiac silhouette stable. Skeletal structures demonstrate; osteopenia and degenerative changes.; ; Impression:; [id number] right pleural effusion with right lower lobe atelectasis.; ; ; Signed by; Fuad Wing MD 10/12/2016 10:05 A; Radiology Order: CT Chest With Contrast Test: CT Chest With Contrast REASON FOR EXAMINATION: pleural effusion; Clinical: Chest pain and shortness of breath with pleural effusion.; ; Technique: Axial contrast enhanced images from the thoracic inlet to the upper; abdomen using 100 ml Isovue 370 intravenous contrast material with coronal and; sagittal re-formations.; ; Findings:; Satisfactory enhancement of the pulmonary vasculature is achieved and no filling; defects are identified to suggest pulmonary embolus. Atherosclerotic changes to; the thoracic aorta and coronary arteries noted without cardiomegaly and no; evidence for thoracic aortic aneurysm or dissection.; ; There is a large right pleural effusion with scattered passive atelectasis as; well as ill-defined area of heterogeneous consolidation in the right lower lobe; and underlying mass/neoplasm cannot be excluded. Underlying chronic interstitial; changes and fibrosis/scarring noted throughout the aerated lung ventura. Skeletal; structures demonstrate age-related degenerative changes. Limited evaluation of; the upper abdomen suggests heterogeneous right adrenal lesion measuring; approximately 13 mm.; ; Impression:; Large right pleural effusion with associated passive atelectasis.; Heterogeneous area of consolidation in the atelectatic right lower lobe requires; followup to exclude mass/neoplasm.; Heterogeneous enhancing lesion in the right adrenal gland cannot be excluded.; ; ; Signed by; Fuad Wing MD 10/12/2016 11:29 A; Outcome: 11:49 Decision to Hospitalize by Provider. sd1 13:30 Discharge Assessment: Patient awake, alert and oriented x 3. No cognitive and/or hs1 functional deficits noted. Patient verbalized understanding of disposition instructions. patient administered narcotics - no. The following High Risk Discharge criteria are identified: None. Admitted to PCU accompanied by nurse, accompanied by tech, via wheelchair, with oxygen, on monitor. Condition: stable. CT Study completed. Admission hand-off: Report called to [facility] PCU. Property :Personal belongings accompany Pt. 13:35 Patient left the ED. hs1 Signatures: Dispatcher [employer] Christa Capone MD MD sd1 Chantelle Billingsley, Reg Reg Barron Diane RN RN mlb1 More Shay RN RN hs1 Priscilla Leone, WELFARE MANAGER WELFARE MANAGER Geovanny Hanley, WELFARE MANAGER WELFARE MANAGER Flavio Shepherd jp5 Christa Monsivais se Chart Complete MTDD
--- NOTE | 2016-10-14 14:37 | EDDOCDS ---
Physician Documentation [facility] Name: Krys Lopez Age: 86 yrs Sex: Female : 1930 Arrival Date: 10/12/2016 Time: 09:34 Bed 4 Private MD: Tania Griffin E Disposition: 10/12/16 11:49 Hospitalization ordered by Lam Estrada for Inpatient Admission. Preliminary diagnosis is Pleural effusion in conditions classified elsewhere. - Bed requested for PCU. - Status is Inpatient Admission. hs1 - Condition is Stable. - Problem is new. - Symptoms are unchanged. Historical: - Allergies: PENICILLINS; - Home Meds: 1. albuterol sulfate 2.5 mg/0.5 mL Nebulizer nebu 4 times per day 2. Oyster Shell Calcium 500 500 mg Oral tab daily 3. potassium chloride 10 mEq Oral cpER 2 caps once daily 4. Zioptan (PF) 0.0015 % ophthalmic dpet 1 drop once daily 5. Tylenol 325 mg Oral tab 2 tabs every 6 hours 6. Zantac 150 mg Oral tab 1 tab once daily 7. Senokot 8.6 mg Oral tab 1 tabs twice a day 8. multivitamin Oral tab 1 tablet daily 9. Claritin 10 mg oral tab 1 tab once daily 10. fludrocortisone 0.1 mg oral tab 1 tab once daily 11. Vitamin D2 50,000 unit oral cap every two weeks 12. mirtazapine 30 mg Oral tab 1 tab once daily 13. Namenda 10 mg oral tab 1 tab daily 14. Milk of Magnesia Oral 10 mL as needed 15. Refresh Tears 0.5 % ophthalmic drop 16. Ativan 0.25mg Oral tab once daily 17. Protopic 0.1 % topical oint as needed 18. Transderm-Scop 1.5 mg (1 mg over 3 days) TD pt3d 1 patch - PMHx: CVA; Hypertension; Seizure Disorder; COPD; GERD; - PSHx: Tonsillectomy; - Social history: Smoking status: Patient states was never smoker of tobacco. No barriers to communication noted, The patient speaks fluent Georgian, Speaks appropriately for age. - Family history: No immediate family members are acutely ill. - : The pt / caregiver states he / she is not on anticoagulants. Home medication list is obtained from the facility NOV. - Exposure Risk Screening:: None identified. Vital Signs: 10/12 09:36 BP 92 / 54; Pulse 72; Resp 18; Temp 96.6; Pulse Ox 92% on 2 lpm NC; Weight 44 kg / 97 elp lbs; Height 61 in. (154.94 cm); 09:44 BP 116 / 61 (auto/); hs1 09:45 Pulse 74 MON; Pulse Ox 91% ; hs1 11:28 BP 115 / 55 (auto/); hs1 11:28 Pulse 70 MON; Pulse Ox 91% ; hs1 11:43 BP 110 / 57 (auto/); hs1 11:43 Pulse 74 MON; Pulse Ox 94% ; hs1 12:13 BP 131 / 60 (auto/); hs1 12:13 Pulse 74 MON; Pulse Ox 91% ; hs1 12:28 BP 123 / 62 (auto/); hs1 12:28 Pulse 70 MON; Pulse Ox 92% ; hs1 12:43 BP 128 / 60 (auto/); hs1 12:43 Pulse 68 MON; Pulse Ox 94% ; hs1 12:58 BP 130 / 68 (auto/); hs1 12:58 Pulse 64 MON; Pulse Ox 94% ; hs1 13:31 BP 132 / 58; Pulse 68; Resp 18; Temp 98.4; Pulse Ox 94% 2 lpm ; hs1 09:36 Body Mass Index 18.33 (44.00 kg, 154.94 cm) elp MDM: 09:39 -Blood Culture (Adults Only), peripheral from different site, or from device/port/PICC sd1 etc. if present ordered. 09:39 Gore Inserter/Pulse Ox/q 15 min VS ordered. sd1 09:39 IV Saline Lock ordered. sd1 09:40 Oxygen at 4L/Min NC or Home dosage ordered. sd1 09:40 Rhythm Strip to chart ordered. sd1 09:41 B-Type Natiuretic Peptide Ordered. EDMS 09:41 Basic Metabolic Profile Ordered. EDMS 09:41 CBC with Diff Ordered. EDMS 09:41 Cardiac Injury Profile Ordered. EDMS 09:41 Troponin Ordered. EDMS 09:41 -Blood Culture Ordered. EDMS 09:41 Chest, 1 View Ordered. EDMS 09:41 ECG WITH READING ER PHYS+CARDIAG ordered. EDMS 09:41 Lactic Acid (Ford tube on ice) Ordered. EDMS 09:44 Orthostatic VS ordered. sd1 09:58 -Blood Culture (Adults Only), peripheral from different site, or from device/port/PICC deg etc. if present complete. 09:59 BLOOD CULTURES Ordered. EDMS 10:27 [facility] Payment Agreement was scanned into [employer] and attached to record. jp5 10:27 Financial registration complete. jp5 10:31 BED REQUEST+ADM ordered. EDMS 10:53 Basic Metabolic Profile Reviewed. sd1 10:53 CBC with Diff Reviewed. sd1 10:53 Cardiac Injury Profile Reviewed. sd1 10:53 Troponin Reviewed. sd1 10:53 Chest, 1 View Reviewed. sd1 10:53 PT/INR Ordered. EDMS 10:56 CT Chest With Contrast Ordered. EDMS 11:25 B-Type Natiuretic Peptide Reviewed. sd1 11:25 Basic Metabolic Profile Reviewed. sd1 11:25 Lactic Acid (Ford tube on ice) Reviewed. sd1 11:25 Cardiac Injury Profile Reviewed. sd1 11:25 Troponin Reviewed. sd1 12:19 Admission / Observation Status ordered. EDMS 12:19 NPO DIET ordered. EDMS 12:21 PHYSICAL THERAPY EVAL & TREAT ordered. EDMS 12:44 T-Sheet-- Draft Copy was scanned into [employer] and attached to record. [facility] 14:37 ECG/EKG was scanned into [employer] and attached to record. 14:38 Radiology Report was scanned into [employer] and attached to record. gb Signatures: Dispatcher [employer] EDDC Christa Whalen MD MD sd1 Arlene Quezada, Drum Maker Unit deg Chantelle Billingsley, Reg Reg Barron Diane RN RN mlb1 More Shay RN RN hs1 Cindy Robles RN Flavio Sanchez 5 Christa Monsivais [facility] The chart was reviewed and I authenticate all verbal orders and agree with the evaluation and treatment provided.Corrections: (The following items were deleted from the chart) 12:57 12:19 PROTHROMBIN TIME PROFILE\E\INR ordered. EDMS EDMS 12:57 12:20 PARTIAL THROMBOPLASTIN TIME ordered. EDDC EDMS Attachments: 10:27 [facility] Payment Agreement [facility] 12:44 T-Sheet-- Draft Copy se 14:37 ECG/EKG gb Chart Complete MTDD
--- NOTE | 2016-10-14 15:13 | IPNPDOC ---
Text Note Date of Service The patient was seen on 10/14/16 at 15:11. NOTE Subjective: Patient states her shortness of breath has improved. Denies any chest pain/palpitations. No acute changes overnight. Objective: Vitals: (see below) PHYSICAL EXAMINATION: Vitals: (see below) General: No acute distress, laying comfortably in bed. HEENT: Moist mucous membranes. Neck: No JVD or lymphadenopathy Cardiac: RRR, No murmurs Pulm: Diminshed breath sounds and coarse crackles R>L b/l. No wheezing, no rhonchi. Right chest tube intact to suction. No drainage at the insertion site. Abd: NT/ND + BS Ext: No edema or cyanosis LABORATORY DATA: See below. IMAGING: CT chest with contrast 10/12/16 Findings: Satisfactory enhancement of the pulmonary vasculature is achieved and no filling defects are identified to suggest pulmonary embolus. Atherosclerotic changes to the thoracic aorta and coronary arteries noted without cardiomegaly and no evidence for thoracic aortic aneurysm or dissection. There is a large right pleural effusion with scattered passive atelectasis as well as ill-defined area of heterogeneous consolidation in the right lower lobe and underlying mass/neoplasm cannot be excluded. Underlying chronic interstitial changes and fibrosis/scarring noted throughout the aerated lung ventura. Skeletal structures demonstrate age-related degenerative changes. Limited evaluation of the upper abdomen suggests heterogeneous right adrenal lesion measuring approximately 13 mm. Impression: Large right pleural effusion with associated passive atelectasis. Heterogeneous area of consolidation in the atelectatic right lower lobe requires followup to exclude mass/neoplasm. Heterogeneous enhancing lesion in the right adrenal gland cannot be excluded. CXR 10/12/16 Impression: [id number] right pleural effusion with right lower lobe atelectasis. CT Chest 10/13/16 Impression: Decreased right pleural effusion with fluid extending into the right minor fissure and trace scattered atelectasis along with chronic fibrosis and interstitial disease. Complex 4.4 cm mass/consolidation in the right lower lobe concerning for neoplasm. Chronic compression fractures at L1 and L2. ASSESSMENT/PLAN: Hypoxia secondary to large pleural effusion with 4.4cm mass. There are areas of consolidation and given the patient's symptoms of cough as well as from a intermediate setting will start patient on vancomycin and Levaquin while cultures are pending. We'll trend WBCs and CRP. De-escalate antibiotics based on cultures. Patient is saturating well on a nasal cannula. Dr. Patel has been consulted and has placed a right chest tube, with greater than 1 L drained , mild exudative. I have spoken to the niece (Cindy) who is the POA, who states the patient would never have wanted any aggressive measures and she does not want to have a biopsy of this lung mass. She would like us to continue conservative measures. I have spoken to Dr. Patel who will be removing the chest tube today or tomorrow. 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 No acute bleeding. We'll continue to monitor hemoglobin. DVT prophylaxis-Lovenox VS,Fishbone, I+O VS, Fishbone, I+O Laboratory Tests 10/14/16 04:32 Calcium Level 8.5 L, Red Blood Count 3.36 L, Mean Corpuscular Volume 96.6 H, Mean Corpuscular Hemoglobin 31.1, Mean Corpuscular Hemoglobin Concent 32.2, Red Cell Distribution Width 12.6, Neutrophils (%) (Auto) 70.3 H, Lymphocytes (%) ( Auto) 11.1 L, Monocytes (%) (Auto) 8.6 H, Eosinophils (%) (Auto) 6.1 H, Basophils (%) (Auto) 0.3, Neutrophils # (Auto) 5.5, Lymphocytes # (Auto) 0.9 L, Monocytes # (Auto) 0.7, Eosinophils # (Auto) 0.5, Basophils # (Auto) 0.0 Vital Signs Date Time Temp Pulse Resp B/P Pulse Ox O2 Delivery O2 Flow Rate FiO2 10/14/16 12:40 20 Room Air 10/14/16 12:00 96.2 83 115/56 92 10/14/16 08:00 1.0 I&O- Last 24 Hours up to 6 AM 10/14/16 06:00 Intake Total 500 ml Output Total 58 ml Balance 442 ml TIMUR BRODERICK MD Oct 14, 2016 15:13
[2016-10-14] MEDS: LevoFLOXacin 250 MG in APPROPRIATE DILUENT 1 EA IV SCH (15:46)
[2016-10-14 16:00] VITALS: BP 122/58
--- NOTE | 2016-10-14 17:23 | IPN ---
DATE: 10/14/2016 Mrs. Lopez's family decided that they do not wish to pursue making a diagnosis of her right lower lobe lung mass. That is not at all unreasonable as there are really no therapeutic implications. As discussed previously, she is not a candidate for chemotherapy nor is she a candidate for surgery. Radiation probably would not help her without systemic therapy. 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 Today, she is pleasantly confused, but very sociable. Her vital signs show a T-max of 97.3 with a heart rate that ranges between 67 and 83 in a sinus rhythm, respiratory rate of 18 to 20 without the use of accessory muscles who is 92 to 96% saturated on room air. Blood pressure is ranging between 115/56 to 133/58. Intake and output over the past 24 hours has been recorded as 800 in and 60 out for a positivity of 820 mL. She weighs 45 kg today compared to 45.7 kg yesterday. She has put out 60 mL from the chest tube and there is no air leak. On physical examination, she has rhonchi throughout both lungs. I cannot get her to cough to see if they will clear with coughing. Percussion note is full to the diaphragm. Cardiac exam is without murmurs, clicks, gallops or rubs. I cannot feel her point of maximal impulse (PMI). S1 and S2 are normal. Abdomen is soft and nontender. Bowel sounds are positive. There is no hepatomegaly. No costovertebral angle (CVA) tenderness. Extremities show no pretibial edema. No calf tenderness. No differential swelling of the upper extremities. Skin is warm, dry and perfused without cyanosis or mottling including that of the nail beds and the knees. Neck is supple. There is no jugular venous distention. No subcutaneous emphysema. Trachea is midline. Mouth shows her mucous membranes to be pink and moist. Lips and commissures without lesions. There is no thrush. Eyes show her pupils to be equal and reactive. Extraocular muscles are intact. Sclera anicteric. Neuro shows II through XII intact. Gross motor and gross sensation intact. Gait is not tested. Psychiatric shows her to be pleasantly confused and with dementia but able to answer questions. Her white count today is 7.8 with a hemoglobin and hematocrit of 10.4 and 32.5. Platelet count is 240. Differential shows 70% neutrophils, 11% lymphocytes, 8% monocytes. No immature forms or toxic granulations. Electrolytes today are normal with a BUN and creatinine of 12 and 0.65. Calcium is 8.5 with a glucose of 95. Her chest x-ray today shows the lung fully expanded to the chest wall. The lateral chest x-ray clearly shows the mass as does the PA film. Chest tube is in good place. There is blunting of the right costophrenic angle. IMPRESSION: 1. Mildly exudative lymphocytic effusion, origin unknown but suspect malignancy. 2. Probable congestive heart failure with increased BNP. 3. Dementia. 4. Status post subarachnoid hemorrhage. 5. Status post subdural hemorrhage. 6. Syndrome of inappropriate secretion of antidiuretic hormone (SIADH) 7. Osteoporosis. 8. Prior gastrointestinal bleeding. 9. Chronic anemia. 10. Renal insufficiency, resolving. 11. Chronic obstructive pulmonary disease (COPD) or at least emphysema. 12. Right lower lobe lung mass. 13. Right adrenal mass. PLAN AND DISCUSSION: I will discontinue her chest tube today. The family plans to have her transferred back to [facility]. Again, I do not think that their decisions are unreasonable as there are no therapeutic implications to making a diagnosis. The only problem is going to be if she reaccumulates her pleural effusion. In that case I will probably put a PleurX catheter in rather than do a talc pleurodesis. I will sign off the case today.
[2016-10-14 19:45] VITALS: BP 122/57
[2016-10-14] MEDS: FAMOTIDINE 20 MG TAB PO SCH (21:03)
[2016-10-14] MEDS: MIRTAZAPINE 15 MG TAB PO SCH (21:03)
[2016-10-14 23:46] VITALS: BP 103/69
[2016-10-15 05:12] VITALS: BP 113/56
[2016-10-15] MEDS: SLF 3 ML SYR IV SCH ×2 (06:06→12:14)
[2016-10-15 06:43] LABS: BASO % 0.4 % (0.0-1.0); EOS # 0.6 K/mm3 (0.0-0.50); EOS % 7.9 % (0.0-3.0); LARGE UNSTAINED CELL # 0.3 K/mm3 (0.0-0.4); LARGE UNSTAINED CELL % 4.2 % (0.0-4.0); LYMPH # 0.9 K/mm3 (1.5-4.5); LYMPH % 12.1 % (24.0-44.0); MEAN CORPUSCULAR HEMOGLOBIN 30.9 pg (27.0-33.0); MEAN CORPUSCULAR VOLUME 96.7 fl (80.0-96.0); MONO # 0.7 K/mm3 (0.0-0.8); MONO % 9.2 % (0.0-5.0); NEUTROPHILS # 5.1 K/mm3 (1.8-7.7); NEUTROPHILS % 66.1 % (36.0-66.0); PLATELET COUNT, AUTOMATED 256 k/mm3 (150-450); RED CELL DISTRIBUTION WIDTH 12.8 % (11.5-14.5); WHITE BLOOD COUNT 7.7 K/mm3 (4.0-10.0)
[2016-10-15 06:54] LABS: ANION GAP 7 MEQ/L (8-16); BLOOD UREA NITROGEN 11 MG/DL (7-18); CALCIUM LEVEL 8.5 MG/DL (8.8-10.2); CARBON DIOXIDE LEVEL 28 MEQ/L (21-32); CHLORIDE LEVEL 104 MEQ/L (98-107); CREATININE FOR GFR 0.64 MG/DL (0.55-1.02); GLOMERULAR FILTRATION RATE > 60.0 (>32); GLUCOSE, FASTING 82 MG/DL (83-110); POTASSIUM SERUM 3.8 MEQ/L (3.5-5.1); SODIUM LEVEL 139 MEQ/L (136-145)
[2016-10-15 08:00] VITALS: BP 130/80
[2016-10-15] MEDS: TIOTROPIUM INHALER/CAPSULE (SPIRIVA) INH SCH (08:00)
[2016-10-15] MEDS: ALBUTEROL SULFATE 2.5 MG/0.5 ML INH NEB SOLN INH SCH ×2 (08:00→11:40)
[2016-10-15] MEDS: FLUDROCORTISONE ACETATE 0.1 MG TAB PO SCH (09:46)
[2016-10-15] MEDS: LORATADINE 10 MG TAB PO SCH (09:46)
[2016-10-15] MEDS: OYSTER SHELL CALCIUM 500 MG TAB PO SCH (09:46)
[2016-10-15] MEDS: MULTIVITAMINS/MINERALS THERAP 1 TAB PO SCH (09:46)
[2016-10-15] MEDS: MEMANTINE 5MG TABLET (NAMENDA) PO SCH (09:46)
[2016-10-15] MEDS: SENOKOT S TAB PO SCH (09:46)
[2016-10-15] MEDS: PANTOPRAZOLE 40MG INJ (PROTONIX) (C9113) IV SCH (09:46)
[2016-10-15] MEDS ORDERED: VANCOMYCIN HCL 1,000 MG, VIAL MATE ADAPTER 1 EACH in D5W 250 ML IV SCH (12:00)
[2016-10-15] MEDS: LORazepam 0.5 MG TAB PO SCH (12:13)
[2016-10-15] MEDS ORDERED: LEVA250T PO (15:58)
--- NOTE | 2016-10-15 16:31 | DSES ---
DATE OF ADMISSION: 10/12/2016 DATE OF DISCHARGE: 10/15/2016 ATTENDING PHYSICIAN: Dr. Wen Atkinson and Dr. Lam Estrada DICTATING PHYSICIAN: Dr. Wen Atkinson PRIMARY CARE PROVIDER: Dr. Tania Griffin REFERRING PHYSICIAN: None. CONSULTING PHYSICIAN: Dr. Earnest Patel CONDITION ON DISCHARGE: Stable. FINAL DIAGNOSIS: Hypoxia secondary to large pleural effusion with 4.4 cm mass. PROCEDURES: Chest tube placement on 10/13/[address] Patel. HISTORY OF PRESENT ILLNESS: The patient is an 86-year-old female with a past medical history of subarachnoid hemorrhage, subdural hemorrhage, syndrome of inappropriate secretion of antidiuretic hormone, osteoporosis, gastrointestinal bleed, chronic anemia, who presents with hypoxia from the assisted. The patient was apparently coughing and short of breath for the last two days. She was found to have hypoxia requiring oxygen supplementation, for which she was sent to the emergency department. The patient, at baseline, has moderate to severe dementia. History is very limited. Upon presentation to the emergency room, she was found to have a large right sided pleural effusion with likely underlying mass. The patient remains hemodynamically stable and was saturating well on [address] Patel was consulted in the emergency room and he was evaluated for possible thoracentesis. HOSPITALIZATION COURSE: 1. Hypoxia secondary to large pleural effusion with a 4.4 cm mass. There are areas of consolidation. Given the patient's symptoms with cough, as well as the assisted setting, the patient was started on vancomycin and Levaquin. Blood cultures are pending. Antibiotics were deescalated. The patient was saturating well on nasal cannula. Dr. Patel was consulted and a right chest tube was placed. After the chest tube was placed, fluid was removed. It was exudative in nature and was consistent with possible malignancy. Repeat imaging showed that there was a consistent mass. Discussion with family was had. The niece, Cindy, who is the power of fabric finisher, states that the patient would never have wanted any aggressive measures and did not want to have a biopsy performed. Advised to continue with conservative measures only. Chest tube was ultimately removed. After the procedure, the patient was transferred back to the assisted. 2. History of subarachnoid hemorrhage and old subdural hematoma. 3. History of syndrome of inappropriate secretion of antidiuretic hormone. 4. History of gastrointestinal bleed. 5. History of osteoporosis and vitamin D deficiency. 6. History of moderate to severe dementia. 7. History of chronic anemia with stable hemoglobin. 8. Deep vein thrombosis (DVT) prophylaxis. She has been put on Lovenox. DISCHARGE MEDICATIONS: The patient has been discharged home with: - acetaminophen 650 mg by mouth four times a day as needed for fever - albuterol inhaled four times a day as needed for shortness of breath - artificial tears one drop in each eye as needed for dry eyes - bisacodyl 10 mg per rectum daily as needed for constipation - Refresh tears two drops in each eye three times a day - fludrocortisone 7.1 mg by mouth daily - Klor-Con sprinkle 20 mEq by mouth daily - loratadine 10 mg by mouth daily - lorazepam 0.5 mg by mouth every four hours as needed for anxiety - lorazepam 0.25 mg by mouth daily - amantadine 10 mg by mouth daily - milk of magnesia 10 mL by mouth daily as needed for constipation - mirtazapine 30 mg by mouth at night - multivitamin one tablet by mouth daily - Oysco 500 mg by mouth twice a day - ranitidine 150 mg by mouth at night - Senna one tablet by mouth twice a day - Fleet enema one per rectum daily as needed for constipation - ipratropium one inhalation daily - vitamin D 50,000 units by mouth every two weeks - Zioptan one drop in each eye at night DISCHARGE INSTRUCTIONS: The patient has been advised to followup with her primary care provider within the next 7 days. She has been advised to remain compliant with treatment and medications. She has been advised to followup with Dr. Patel, cardiothoracic surgery, within the next 7 days. She has been advised to call to confirm/schedule appointment. She has been advised to return to the emergency room if she experiences any problems. Time spent on discharge: 35 minutes. JAMA
== END 2016-10-15 13:40 | DRG 187 ==
LOC: M ED 09:34 → M ED INP 12:10 → M PCU 13:43
PROVIDERS: ADMIT Internal Medicine; ATTEND Internal Medicine
PROC: 0W9930Z Drainage of Right Pleural Cavity with Drainage Device, Percutaneous Approach (ICD-10-PCS; principal; 2016-10-12)
DX: J90 Pleural effusion, not elsewhere classified (principal); E22.2 Syndrome of inappropriate secretion of antidiuretic hormone; R64 Cachexia; R91.8 Other nonspecific abnormal finding of lung field; J44.9 Chronic obstructive pulmonary disease, unspecified; I50.9 Heart failure, unspecified; E55.9 Vitamin D deficiency, unspecified; Z79.899 Other long term (current) drug therapy; Z88.0 Allergy status to penicillin; F03.90 Unspecified dementia, unspecified severity, without behavioral disturbance, psychotic disturbance, mood disturbance, and anxiety; M81.0 Age-related osteoporosis without current pathological fracture; D64.9 Anemia, unspecified; E27.9 Disorder of adrenal gland, unspecified; Z87.891 Personal history of nicotine dependence

== ENCOUNTER → 2016-10-18 | Outpatient (CLI) | payer MEDICARE, BC, OTHER, MEDICAID ==
[~2016-10-18] MED LIST changes: +ALBU83IN INH; +ARTI99.0 OU; -ENOXAPARIN 40 MG/0.4 ML SYRINGE (J1650) SC SCH; +FEVE650S3 PR; +KLOR1CAP2 PO; +LORA-376 PO; +MIRT30TA3 PO; +NAME10TA PO; +SENO8.6T2 PO; +TRAN1.5D2 TOP; +TYLE325T5 PO; +ZIOPTAN OD
--- NOTE | 2016-10-18 13:11 | REP ---
Right forearm: Two views. History: Pain and redness after a fall. Findings: Two forearm views are presented. A nondisplaced distal ulnar fracture is seen with associated soft-tissue swelling as described in the hand radiographs. Old post-traumatic deformity is seen in the distal radius. There is marked diffuse osteoporosis. Impression: Nondisplaced distal ulnar fracture. Signed by Phill Fuentes MD 10/18/2016 02:41 P
--- NOTE | 2016-10-18 13:11 | REP ---
Right hand series: Five views. History: Pain and redness after a fall. Findings: There is profound diffuse osteoporosis. There is an acute fracture of the distal ulna in the diaphysis. There is old impacted fracture deformity at the site of a healed fracture of the distal radius. This is unchanged from a prior study of August 12, 2013. There is also old post-traumatic deformity from healed fractures of the distal ends of the fourth and fifth metacarpals. No other acute fracture is seen. Impression: Acute nondisplaced distal ulnar fracture. Signed by Phill Fuentes MD 10/18/2016 02:41 P
== END ==
LOC: M RAD 10:54 → EDSTATUS 11:05
PROVIDERS: ATTEND Internal Medicine
DX: S52.201A Unspecified fracture of shaft of right ulna, initial encounter for closed fracture (principal); W18.30XA Fall on same level, unspecified, initial encounter; Y92.009 Unspecified place in unspecified non-institutional (private) residence as the place of occurrence of the external cause

== ENCOUNTER → 2017-01-06 | Outpatient (REF) | payer MEDICARE, BC, OTHER, MEDICAID ==
[2017-01-06 09:34] LABS: ALBUMIN 2.8 GM/DL (3.2-5.2); ALBUMIN/GLOBULIN RATIO 0.57 (1.00-1.93); ALKALINE PHOSPHATASE 112 U/L (45-117); ALT/SGPT 12 U/L (12-78); ANION GAP 8 MEQ/L (8-16); AST/SGOT 13 U/L (15-37); BILIRUBIN,TOTAL 0.3 MG/DL (0.2-1.0); BLOOD UREA NITROGEN 18 MG/DL (7-18); CARBON DIOXIDE LEVEL 30 MEQ/L (21-32); CHLORIDE LEVEL 101 MEQ/L (98-107); CREATININE FOR GFR 0.69 MG/DL (0.55-1.02); GLOMERULAR FILTRATION RATE > 60.0 (>32); GLUCOSE, FASTING 122 MG/DL (83-110); MEAN CORPUSCULAR HEMOGLOBIN 29.4 pg (27.0-33.0); POTASSIUM SERUM 4.1 MEQ/L (3.5-5.1); RED CELL DISTRIBUTION WIDTH 14.1 % (11.5-14.5); SODIUM LEVEL 139 MEQ/L (136-145); TOTAL PROTEIN 7.7 GM/DL (6.4-8.2); WHITE BLOOD COUNT 9.2 K/mm3 (4.0-10.0)
== END ==
LOC: SKLAB8 08:00
PROVIDERS: ATTEND Internal Medicine
DX: I10 Essential (primary) hypertension (principal); D64.9 Anemia, unspecified

== ENCOUNTER → 2017-01-20 | Outpatient (REF) | payer MEDICARE, BC, OTHER, MEDICAID ==
[2017-01-20 08:55] LABS: MEAN CORPUSCULAR HEMOGLOBIN 29.3 pg (27.0-33.0); MEAN CORPUSCULAR HGB CONC 30.7 g/dl (32.0-36.5); MEAN CORPUSCULAR VOLUME 95.5 fl (80.0-96.0); RED CELL DISTRIBUTION WIDTH 14.1 % (11.5-14.5); WHITE BLOOD COUNT 10.7 K/mm3 (4.0-10.0)
[2017-01-20 09:12] LABS: ALBUMIN 2.7 GM/DL (3.2-5.2); ALBUMIN/GLOBULIN RATIO 0.49 (1.00-1.93); ALKALINE PHOSPHATASE 103 U/L (45-117); ALT/SGPT 15 U/L (12-78); ANION GAP 5 MEQ/L (8-16); AST/SGOT 12 U/L (15-37); BILIRUBIN,TOTAL 0.3 MG/DL (0.2-1.0); BLOOD UREA NITROGEN 23 MG/DL (7-18); CALCIUM LEVEL 10.3 MG/DL (8.8-10.2); CARBON DIOXIDE LEVEL 30 MEQ/L (21-32); CHLORIDE LEVEL 102 MEQ/L (98-107); CREATININE FOR GFR 0.69 MG/DL (0.55-1.02); GLOMERULAR FILTRATION RATE > 60.0 (>32); GLUCOSE, FASTING 92 MG/DL (83-110); POTASSIUM SERUM 4.3 MEQ/L (3.5-5.1); SODIUM LEVEL 137 MEQ/L (136-145); TOTAL PROTEIN 8.2 GM/DL (6.4-8.2)
== END ==
LOC: SKLAB8 12:45
PROVIDERS: ATTEND Internal Medicine
DX: E83.52 Hypercalcemia (principal)